=== PATIENT | female | born 1960 | race Caucasian/White ===

== ENCOUNTER 2019-02-16 20:27 | Inpatient (IN) | payer SELFPAY ==
[2019-02-16] MEDS ORDERED: SODIUM CHLORIDE 0.9% 500 ML INFUS.BAG IV ONE (21:19)
[2019-02-16] MEDS ORDERED: ACETAMINOPHEN 1000 MG/100 ML VIAL (NON FORMULARY) IVPB ONE (21:19)
[2019-02-16] MEDS ORDERED: ONDANSETRON 4 MG/2 ML VIAL IVPUSH ONE (21:19)
--- NOTE | 2019-02-16 21:30 | PDOC ---
History of Present Illness - General Chief Complaint: Pain, Acute Stated Complaint: ABDOMINAL PAIN Time Seen by Provider: 02/16/19 20:47 - History of Present Illness Initial Comments: Ms. Tristan is a 58 y/o female with PMH significant for CML (on daily Gleevec ) presenting with nausea, vomiting, and abdominal pain that started yesterday. Reports that after lunch she started vomiting NBNB. Reports 10x vomiting over the past day. Describes the abdominal pain as periumbilical and intermittent, coming in waves. Denies chest pain. Denies shortness of breath. Reports constipation. Denies headache/dizziness. Denies lower extremity swelling. Denies fever or chills. SurgHx: s/p gastric bypass surgery Past History - Past Medical History Allergies/Adverse Reactions: Allergies Allergy/AdvReac Type Severity Reaction Status Date / Time Penicillins Allergy Intermediate Verified 02/17/19 04:16 Home Medications: Ambulatory Orders Imatinib Mesylate [Gleevec] 400 mg PO BID 03/09/12 Cancer: Yes (LEUKEMIA) - Psycho Social/Smoking Cessation Hx Smoking Status: No Smoking History: Never smoked Have you smoked in the past 12 months: No Number of Cigarettes Smoked Daily: 0 Information on smoking cessation initiated: No Hx Alcohol Use: No Drug/Substance Use Hx: No Review of Systems - Review of Systems Comments:: GENERAL/CONSTITUTIONAL: No fever or chills. No weakness._ HEAD, EYES, EARS, NOSE AND THROAT: No change in vision. No change in hearing. No sore throat._ CARDIOVASCULAR: No chest pain or shortness of breath_ RESPIRATORY: Denies cough, hemoptysis_ GASTROINTESTINAL: Reports abdominal pain, nausea, vomiting, constipation. GENITOURINARY: No dysuria, frequency, or change in urination._ MUSCULOSKELETAL: No joint or muscle swelling or pain. No neck or back pain._ SKIN: No rash_ NEUROLOGIC: No headache, vertigo, loss of consciousness, or change in strength/ sensation._ ENDOCRINE: No increased thirst. No abnormal weight change_ HEMATOLOGIC/LYMPHATIC: No anemia, easy bleeding, or history of blood clots._ ALLERGIC/IMMUNOLOGIC: No hives or skin allergy._ *Physical Exam - Vital Signs Last Vital Signs Temp Pulse Resp BP Pulse Ox 97.5 F L 97 H 20 137/57 L 96 02/16/19 20:45 02/16/19 20:45 02/16/19 20:45 02/16/19 20:45 02/16/19 20:45 - Physical Exam GENERAL: Awake, alert, and oriented to person/place/time, in no acute distress_ HEAD: No signs of trauma, normocephalic, atraumatic _ EYES: PERRLA, EOMI, sclera anicteric, conjunctiva clear_ ENT: Hearing grossly normal, nares patent, oropharynx clear without exudates. No uvular deviation. Moist mucosa_ NECK: Normal ROM, supple, no lymphadenopathy, JVD, or masses_ LUNGS: No distress, speaks in full sentences, clear to auscultation bilaterally _ HEART: Regular rate and rhythm, normal S1 and S2, no murmurs appreciated, peripheral pulses normal and equal bilaterally._ ABDOMEN: Soft, obese, diffuse TTP worse in the periumbilical area. No guarding, no rebound. No masses_ EXTREMITIES: Normal inspection, Normal range of motion, no edema. No clubbing or cyanosis_ NEUROLOGICAL: Cranial nerves II through XII grossly intact. Normal speech, normal gait, no focal sensorimotor deficits _ SKIN: Warm, Dry, normal turgor, no rashes or lesions noted_ ED Treatment Course - LABORATORY CBC & Chemistry Diagram: 02/17/19 05:50 02/17/19 05:50 - RADIOLOGY Radiology Studies Ordered: Category Date Time Status ABDOMEN & PELVIS CT WITH CONTR [CT] Stat CT Scan 02/16/19 21:17 Ordered CHEST X-RAY PORTABLE* [RAD] Stat Radiology 02/16/19 21:18 Ordered Medical Decision Making - Medical Decision Making 02/16/19 21:20 58F hx of CML on Gleevec here with nausea, vomiting, abdominal pain that started yesterday. -cbc, cmp, lactic, lipase, coags -trop, ekg, cxr -ct abd/pelv 02/16/19 22:52 Labs reviewed. Lipase elevated. Potassium low. LFTs elevated -supplement K -will obtain RUQ US to r/o gallstone pancreatitis Laboratory Tests 02/16/19 02/16/19 02/16/19 21:31 21:31 21:31 WBC RBC Hgb Hct MCV MCH MCHC RDW Plt Count MPV Absolute Neuts (auto) Neutrophils % Neutrophils % (Manual) Band Neutrophils % Lymphocytes % Lymphocytes % (Manual) Monocytes % Monocytes % (Manual) Eosinophils % Eosinophils % (Manual) Basophils % Basophils % (Manual) Myelocytes % (Man) Promyelocytes % (Man) Blast Cells % (Manual) Nucleated RBC % Metamyelocytes Platelet Estimate PT with INR INR PTT (Actin FS) Sodium 140 Potassium 2.8 L* Chloride 109 H Carbon Dioxide 21 Anion Gap 10 BUN 13.4 Creatinine 1.0 Est GFR (CKD-EPI)AfAm 71.41 Est GFR (CKD-EPI)NonAf 61.62 Random Glucose 133 H Lactic Acid 3.9 H* Calcium 8.7 Total Bilirubin 5.7 H AST 135 H ALT 192 H Alkaline Phosphatase 223 H Creatine Kinase Troponin I Total Protein 6.6 Albumin 3.7 Lipase 50562 H Urine Color Urine Appearance Urine pH Ur Specific [place] Urine Protein Urine Glucose (UA) Urine Ketones Urine Blood Urine Nitrite Urine Bilirubin Urine Urobilinogen Ur Leukocyte Esterase Urine WBC (Auto) Urine RBC (Auto) Urine Casts (Auto) U Pathogenic Cast Auto U Epithel Cells (Auto) Urine Bacteria (Auto) Urine HCG, Qual Negative 02/16/19 02/16/19 02/16/19 21:31 21:31 21:31 WBC 2.1 L RBC 3.86 Hgb 11.2 Hct 34.2 MCV 88.7 MCH 29.2 MCHC 32.9 RDW 15.3 D Plt Count 87 L MPV 8.4 Absolute Neuts (auto) 2.0 Neutrophils % 94.7 H D Neutrophils % (Manual) 79.6 Band Neutrophils % 14.3 Lymphocytes % 3.5 L D Lymphocytes % (Manual) 3.1 L Monocytes % 1.4 L Monocytes % (Manual) 2 L Eosinophils % 0.4 D Eosinophils % (Manual) 0.0 Basophils % 0.0 Basophils % (Manual) 0.0 Myelocytes % (Man) 0 Promyelocytes % (Man) 0 Blast Cells % (Manual) 0 Nucleated RBC % 0 Metamyelocytes 0 Platelet Estimate Decreased PT with INR 15.80 H INR 1.34 H PTT (Actin FS) 30.7 Sodium Potassium Chloride Carbon Dioxide Anion Gap BUN Creatinine Est GFR (CKD-EPI)AfAm Est GFR (CKD-EPI)NonAf Random Glucose Lactic Acid Calcium Total Bilirubin AST ALT Alkaline Phosphatase Creatine Kinase 86 Troponin I < 0.02 Total Protein Albumin Lipase Urine Color Urine Appearance Urine pH Ur Specific [place] Urine Protein Urine Glucose (UA) Urine Ketones Urine Blood Urine Nitrite Urine Bilirubin Urine Urobilinogen Ur Leukocyte Esterase Urine WBC (Auto) Urine RBC (Auto) Urine Casts (Auto) U Pathogenic Cast Auto U Epithel Cells (Auto) Urine Bacteria (Auto) Urine HCG, Qual 02/16/19 21:31 WBC RBC Hgb Hct MCV MCH MCHC RDW Plt Count MPV Absolute Neuts (auto) Neutrophils % Neutrophils % (Manual) Band Neutrophils % Lymphocytes % Lymphocytes % (Manual) Monocytes % Monocytes % (Manual) Eosinophils % Eosinophils % (Manual) Basophils % Basophils % (Manual) Myelocytes % (Man) Promyelocytes % (Man) Blast Cells % (Manual) Nucleated RBC % Metamyelocytes Platelet Estimate PT with INR INR PTT (Actin FS) Sodium Potassium Chloride Carbon Dioxide Anion Gap BUN Creatinine Est GFR (CKD-EPI)AfAm Est GFR (CKD-EPI)NonAf Random Glucose Lactic Acid Calcium Total Bilirubin AST ALT Alkaline Phosphatase Creatine Kinase Troponin I Total Protein Albumin Lipase Urine Color Dk yellow Urine Appearance Cloudy Urine pH 5.0 Ur Specific [place] 1.021 Urine Protein 1+ H Urine Glucose (UA) Negative Urine Ketones 2+ H Urine Blood Negative Urine Nitrite Positive H Urine Bilirubin 2+ H Urine Urobilinogen 1.0 Ur Leukocyte Esterase Trace Urine WBC (Auto) 10 Urine RBC (Auto) 0-4 Urine Casts (Auto) 16 U Pathogenic Cast Auto Negative U Epithel Cells (Auto) 3.9 Urine Bacteria (Auto) 962.4 Urine HCG, Qual 02/17/19 00:05 Pt signed out to Dr. Kent. Discharge - Discharge Information Problems reviewed: Yes Clinical Impression/Diagnosis: Acute gallstone pancreatitis, Cholecystitis Condition: Fair - Admission Yes - Follow up/Referral - Patient Discharge Instructions - Post Discharge Activity
[2019-02-16] MEDS ORDERED: ACETAMINOPHEN INJECTION 100 ML IVPB ONE (21:44)
[2019-02-16] MEDS ORDERED: ONDANSETRON 4 MG/2 ML VIAL ONE (21:44)
[2019-02-16 21:49] LABS: EOS % 0.4 % (0-4.5); HEMATOCRIT 34.2 % (32.4-45.2); HEMOGLOBIN 11.2 GM/dL (10.7-15.3); LYMPH % 3.5 % (8-40); MCH 29.2 pg (25.7-33.7); MCHC 32.9 g/dl (32.0-36.0); MEAN CELL VOLUME 88.7 fl (80-96); MEAN PLT VOLUME 8.4 fl (7.5-11.1); MONO % 1.4 % (3.8-10.2); NEUT % 94.7 % (42.8-82.8); PLATELET COUNT 87 K/MM3 (134-434); RBC 3.86 M/mm3 (3.60-5.2); RDW 15.3 % (11.6-15.6); WHITE BLOOD COUNT 2.1 K/mm3 (4.0-10.0)
[2019-02-16 21:54] LABS: INR 1.34 (0.83-1.09); PROTHROMBIN TIME (PATIENT) 15.8 SEC (9.7-13.0)
[2019-02-16 21:57] LABS: ACTIVATED PTT 30.7 SECONDS (25.2-36.5)
[2019-02-16 22:09] LABS: EPI CELLS 3.9 /HPF (0-5/HPF); HYALINE CASTS 16 /lpf (0-8); URINE APPEARANCE CLOUDY; URINE BACTERIA 962.4 /hpf (NEGATIVE); URINE BILIRUBIN 2+ (NEGATIVE); URINE COLOR DK YELLOW; URINE GLUCOSE (UA) NEGATIVE (NEGATIVE); URINE KETONE 2+ (NEGATIVE); URINE LEUK ESTERASE TRACE (NEGATIVE); URINE NITRITE POSITIVE (NEGATIVE); URINE PROTEIN 1+ (NEGATIVE); URINE WBC 10 /hpf (0-5)
[2019-02-16 22:22] LABS: PLATELET ESTIMATE DECREASED
[2019-02-16 22:23] LABS: ALBUMIN 3.7 g/dl (3.4-5.0); BILIRUBIN,TOTAL 5.7 mg/dL (0.2-1); BLOOD UREA NITROGEN 13.4 mg/dL (7-18); CALCIUM 8.7 mg/dL (8.5-10.1); TOT PROT 6.6 g/dl (6.4-8.2)
[2019-02-16 22:24] LABS: POTASSIUM 2.8 mmol/L (3.5-5.1)
[2019-02-16] MEDS ORDERED: POTASSIUM CHLORIDE 20 MEQ PREMIX IVPB 100 ML IVPB ONE (22:26)
[2019-02-16] MEDS ORDERED: LACTATED RINGERS SOLUTION 1,000 ML/1,000 ML INFUS.BAG IV SCH (22:30)
[2019-02-16 22:44] LABS: URINE RBC 0-4 /hpf (0-4)
--- NOTE | 2019-02-16 22:49 | PDOC ---
Documentation entered by Jamison Mancilla SCRIBE, acting as scribe for Danisha Davis MD. Danisha Davis MD: This documentation has been prepared by the Laurent nunez Xhesika, SCRIBE, under my direction and personally reviewed by me in its entirety. I confirm that the documentation accurately reflects all work, treatment, procedures, and medical decision making performed by me. Attending Attestation - Resident Resident Name: Abhijeet Quinones - ED Attending Attestation I have performed the following: I have examined & evaluated the patient, The case was reviewed & discussed with the resident, I agree w/resident's findings & plan, Exceptions are as noted - HPI HPI: 02/16/19 22:06 The patient is a 58 year old female with a significant PMH of CML (on daily Gleevec) who presents to the emergency department for abdominal pain, nausea and NBNB emesis. Patient reports that she was well during thanksgiving Yesterday, she had breakfast and subsequent to this noted nausea and vomiting She improved by the evening and was able to tolerate home made soup This morning she again began to have nausea and vomiting She has had multiple episodes of nausea and vomiting No diarrhea, today small hard stools She is not passing gas Pt has had waves of abdominal pain, through out the abdomen, rated 10/10, no radiation, no exacerbating or alleviating factors No fevers, chills No dysuria, frequency, urgency and hematuria. Allergies: penicillins Past surgical history: s/p gastric bypass PCP: Dr. Hernandez 02/16/19 22:31 - Physicial Exam PE: 02/16/19 22:07 GENERAL: The patient is in no acute distress. HEAD: Normal EYES: PERRLA, EOMI, sclera anicteric, conjunctiva clear. ENT: Ears normal, nares patent, oropharynx clear without exudates. Dry mucous membranes. LUNGS: Breath sounds equal, clear to auscultation bilaterally. No wheezes, and no crackles. HEART:Regular rate and rhythm, normal S1 and S2 without murmur, rub or gallop. ABDOMEN: Soft, protruberant, tender epigastrium, tender lower abdomen, no involuntary guarding or rebound EXTREMITIES: Normal range of motion, no edema. NEUROLOGICAL: Cranial nerves II through XII grossly intact. Normal speech. No focal neurological deficits. SKIN: Warm, Dry, normal turgor, no rashes or lesions noted. 02/16/19 22:46 - Critical Care Time Total Critical Care Time: 60 Critical Care Statement: The care of this patient involved high complexity decision making to prevent further life threatening deterioration of the patient 's condition and/or to evaluate & treat vital organ system(s) failure or risk of failure. - Medical Decision Making 02/16/19 22:47 58-year-old female presenting with a complaint of abdominal pain, intractable vomiting DD: Appendicitis, colitis, enteritis, gastroenteritis, obstruction, cholecystitis, gastritis, gastric ulcer, diverticulitis We will do: Lab CT IV hydration Analgesia, antiemetic 02/16/19 22:48 Laboratory Tests 02/16/19 02/16/19 02/16/19 21:31 21:31 21:31 WBC Hgb Hct Plt Count Neutrophils % INR PTT (Actin FS) Sodium 140 Potassium 2.8 L* Chloride 109 H BUN 13.4 Creatinine 1.0 Random Glucose 133 H Lactic Acid 3.9 H* Total Bilirubin 5.7 H AST 135 H ALT 192 H Alkaline Phosphatase 223 H Creatine Kinase Troponin I Albumin 3.7 Lipase 49788 H Urine Ketones Urine Blood Urine Nitrite Urine Bilirubin Ur Leukocyte Esterase Urine WBC (Auto) Urine HCG, Qual Negative 02/16/19 02/16/19 02/16/19 21:31 21:31 21:31 WBC 2.1 L Hgb 11.2 Hct 34.2 Plt Count 87 L Neutrophils % 94.7 H D INR 1.34 H PTT (Actin FS) 30.7 Sodium Potassium Chloride BUN Creatinine Random Glucose Lactic Acid Total Bilirubin AST ALT Alkaline Phosphatase Creatine Kinase 86 Troponin I < 0.02 Albumin Lipase Urine Ketones Urine Blood Urine Nitrite Urine Bilirubin Ur Leukocyte Esterase Urine WBC (Auto) Urine HCG, Qual 02/16/19 21:31 WBC Hgb Hct Plt Count Neutrophils % INR PTT (Actin FS) Sodium Potassium Chloride BUN Creatinine Random Glucose Lactic Acid Total Bilirubin AST ALT Alkaline Phosphatase Creatine Kinase Troponin I Albumin Lipase Urine Ketones 2+ H Urine Blood Negative Urine Nitrite Positive H Urine Bilirubin 2+ H Ur Leukocyte Esterase Trace Urine WBC (Auto) 10 Urine HCG, Qual Elevated bilirubin LFT abnormality Pancreatitis We will do right upper quadrant ultrasound We will do CT of the abdomen and pelvis 02/17/19 01:54 EKG: ST rate of 106 bpm, axis nml, intervals nml, no st elevation or depression , t waves upright Signed out pending CT and US Clinical impression: Likely gallstone pancreatitis, initial presentation Discharge - Discharge Information Problems reviewed: Yes Clinical Impression/Diagnosis: Acute gallstone pancreatitis, Cholecystitis Condition: Fair - Admission Yes - Follow up/Referral - Patient Discharge Instructions - Post Discharge Activity
[2019-02-16] MEDS ORDERED: KCL 10 MEQ IVPB 20 MEQ/200 ML INFUS.BAG IVPB ONE (23:08)
[2019-02-17] MEDS ORDERED: KCL 10 MEQ IVPB 10 MEQ/100 ML INFUS.BAG IVPB SCH (02:15)
[2019-02-17] MEDS ORDERED: KCL 10 MEQ IVPB 10 MEQ/100 ML INFUS.BAG IVPB ONE (02:32)
--- NOTE | 2019-02-17 02:51 | HP ---
Admitting History and Physical - Primary Care Physician PCP: Dr. Hernandez - Admission Chief Complaint: Acute abdominal pain, [place] History of Present Illness: 58 year old female with PMH significant for CML (on daily Gleevec) arrived to ED for nausea, vomiting, and abdominal pain which started yesterday. According to patient pain started after lunch which lead to vomiting NBNB. Patient reports 10x vomiting over the past day. Patient described abdominal pain as angelica -umbilical and intermittent, no radiation, no exacerbating or alleviating factors. Patient denies chest pain, SOB, headache/dizziness, fever or chills however does report constipation. History Source: Patient Limitations to Obtaining History: No Limitations - Past Medical History Heme/Onc: Yes: Cancer (CML) - Past Surgical History Past Surgical History: Yes: Bariatric Surgery (s/p gastric bypass), Tubal Ligation - Smoking History Smoking history: Never smoked Have you smoked in the past 12 months: No Aproximately how many cigarettes per day: 0 - Alcohol/Substance Use Hx Alcohol Use: No History of Substance Use: reports: None - Social History Usual Living Arrangement: Yes: With Spouse ADL: Independent History of Recent Travel: Yes (Amy, moves back and forth ) Home Medications - Allergies Allergies/Adverse Reactions: Allergies Allergy/AdvReac Type Severity Reaction Status Date / Time Penicillins Allergy Intermediate Verified 02/17/19 04:16 - Home Medications Home Medications: Ambulatory Orders Imatinib Mesylate [Gleevec] 400 mg PO BID 03/09/12 Multivit-Min/FA/Lycopene/Lut [Centrum Silver Tablet] 1 each PO DAILY 03/09/12 levoFLOXacin [Levaquin] 500 mg PO DAILY #7 tablet 03/11/12 Family Medical History Family Hx Cancer: Mother (breast ca) Family Hx Nuerologic Problems: Father (strokes) Review of Systems - Review of Systems Constitutional: reports: No Symptoms Eyes: reports: No Symptoms HENT: reports: No Symptoms Neck: reports: No Symptoms Cardiovascular: reports: No Symptoms Respiratory: reports: No Symptoms Gastrointestinal: reports: Abdominal Pain, Constipation, Nausea, Vomiting Genitourinary: reports: No Symptoms Breasts: reports: No Symptoms Reported Musculoskeletal: reports: No Symptoms Integumentary: reports: No Symptoms Neurological: reports: No Symptoms Endocrine: reports: No Symptoms Hematology/Lymphatic: reports: No Symptoms Psychiatric: reports: No Symptoms Physical Examination Vital Signs: Vital Signs Temperature 97.5 F L 02/16/19 20:45 Pulse Rate 97 H 02/16/19 20:45 Respiratory Rate 20 02/16/19 20:45 Blood Pressure 137/57 L 02/16/19 20:45 O2 Sat by Pulse Oximetry (%) 96 02/16/19 20:45 Constitutional: Yes: No Distress, Calm Eyes: Yes: Conjunctiva Clear, EOM Intact HENT: Yes: Atraumatic, Normocephalic Neck: Yes: Supple, Trachea Midline Cardiovascular: Yes: Regular Rate and Rhythm Respiratory: Yes: Regular, CTA Bilaterally Gastrointestinal: Yes: Soft, Abdomen, Obese, Tenderness, Tenderness, Epigastrium Musculoskeletal: Yes: WNL Extremities: Yes: WNL Edema: No Peripheral Pulses WNL: Yes Neurological: Yes: Oriented Labs: CBC, BMP 02/16/19 21:31 02/16/19 21:31 Imaging - Results Cat Scan: Report Reviewed ( CT Abd: small gallstones are noted, acute cholecystitis) Ultrasound: Report Reviewed (Abd US: moderate gallbladder distention with choleithiasis, and abnormal gallbladder wall thickening with mild pericholecystic fluid consistent with acute cholecystitis.) Problem List - Problems (1) Sepsis associated hypotension Code(s): A41.9 - SEPSIS, UNSPECIFIED ORGANISM; I95.9 - HYPOTENSION, UNSPECIFIED (2) Acute gallstone pancreatitis Code(s): K85.10 - BILIARY ACUTE PANCREATITIS WITHOUT NECROSIS OR INFECTION (3) Cholecystitis Code(s): K81.9 - CHOLECYSTITIS, UNSPECIFIED (4) Elevated lactic acid level Code(s): R79.89 - OTHER SPECIFIED ABNORMAL FINDINGS OF BLOOD CHEMISTRY (5) CML (chronic myelocytic leukemia) Code(s): C92.10 - CHRONIC MYELOID LEUK, BCR/ABL-POSITIVE, NOT ACHIEVE REMIS (6) Hypokalemia Code(s): E87.6 - HYPOKALEMIA Assessment/Plan 58 year old female with PMH significant for CML (on daily Gleevec) arrived to ED for nausea, vomiting, and abdominal pain which started yesterday. #Sepsis #Acute gallstone pancreatitis #Cholecystitis # Elevated lactic acidosis Abd US: moderate gallbladder distention with choleithiasis, and abnormal gallbladder wall thickening with mild pericholecystic fluid consistent with acute cholecystitis. CT Abd: small gallstones are noted, acute cholecystitis Lipase: 87328 Alkaline phos: 223; ALT: 192; AST: 135; Total bili: 5.7 UA: 2+ bili, +nitrate, +1 protein lactic acid: 3.9, follow up #2 at 6 am S/P in ED IV hydration,Analgesia, antiemetic, given x1 flagyl and Levaquin IV - monitor LFTs, bili trend - ED discussed with Sx, recs to continue with IVF and antibiotics, possible sx Monday - continue with IVF - continue with Analgesia PRN - continue with antiemetic PRN - change IV antibiotics to broad consider Vancomycin and flagyl - repeat cbc, CMP in AM - follow up ID consult - follow up surgery consult - follow up GI consult #Leukopenia, Hypotension - BP dropped from 137/57 --> 96/50 post 2 L IVF - consider bolus fluids , if still hypotensive consider pressors # Hypokalemia K(2.8) -replaced with KCL in ED - monitor K trend # Chronic Myeloid leukemia - Imatinib Mesylate 400 mg PO BID VTE: Heparin SQ, TEDs FEN: continue with IVF, replace/correct lytes, NPO Disposition: Inpatient ICU Visit type - Emergency Visit Emergency Visit: Yes ED Registration Date: 02/17/19 Care time: The patient presented to the Emergency Department on the above date and was hospitalized for further evaluation of their emergent condition. - New Patient This patient is new to me today: Yes Date on this admission: 02/17/19 - Critical Care Critical Care patient: No
[2019-02-17] MEDS ORDERED: SODIUM CHLORIDE 1,000 ML IV STA (03:21)
[2019-02-17] MEDS ORDERED: MORPHINE SULFATE 2 MG/ML VIAL IVPUSH PRN (03:25)
[2019-02-17] MEDS ORDERED: ACETAMINOPHEN 325 MG TABLET (FP) PO PRN (03:25)
--- NOTE | 2019-02-17 04:08 | CONSULT ---
Consult Consult Specialty:: CCM Referred by:: ED attending Paty Reason for Consultation:: gallstone pancreatitis, cholecystitis - History of Present Illness Chief Complaint: abd pain, N/V History of Present Illness: 58 y/o woman with CML on Gleevac, morbidi obesity s/p gastric bypass presenting with non bloody non bilious nausea, vomiting and abdominal pain for 36 hrs which began after Thanksgiving dinner. She denies loss of consciousness, chest pain, shortness of breath, hematemesis, new medication, trauma. In ED she is afebrile mildly tachycardic, normotensive. Labs notable for wbc 2, Lactate 3, Tbili 5, Lipase 12K, elevated AST and ALT. She underwent CTAP and abd US both of which showed thickened gallbladder and cholelithiasis with associated pericholeic fluid. She was started on broad spectrum abd. GI and surgery were called by ED. Pt received ~2.5L crystalloid . SBP fell to 90s. Pt being admitted to ICU for further management pending determination for ERCP vs cholecystectomy. - History Source History Provided By: Patient, Medical Record Limitations to Obtaining History: No Limitations - Past Medical History Heme/Onc: Yes: Other (CML) - Past Surgical History Past Surgical History: Yes: Bariatric Surgery (s/p gastric bypass), Tubal Ligation - Alcohol/Substance Use Hx Alcohol Use: No History of Substance Use: reports: None - Smoking History Smoking history: Never smoked Have you smoked in the past 12 months: No Aproximately how many cigarettes per day: 0 - Social History Usual Living Arrangement: With Spouse ADL: Independent History of Recent Travel: Yes (Amy, moves back and forth ) Home Medications - Allergies Allergies/Adverse Reactions: Allergies Allergy/AdvReac Type Severity Reaction Status Date / Time Penicillins Allergy Intermediate Verified 02/17/19 04:16 - Home Medications Home Medications: Ambulatory Orders Imatinib Mesylate [Gleevec] 400 mg PO BID 03/09/12 Family Medical History Family History: Unremarkable Review of Systems - Review of Systems Constitutional: reports: No Symptoms, Night Sweats, Unintentional Wgt. Loss Eyes: reports: No Symptoms HENT: reports: No Symptoms Neck: reports: No Symptoms Cardiovascular: reports: No Symptoms Respiratory: reports: No Symptoms Gastrointestinal: reports: Abdominal Pain, Nausea, Vomiting. denies: Diarrhea, Melena, Vomiting Blood Genitourinary: reports: No Symptoms Breasts: reports: No Symptoms Reported Musculoskeletal: reports: No Symptoms Integumentary: reports: No Symptoms Neurological: reports: No Symptoms Endocrine: reports: No Symptoms Hematology/Lymphatic: reports: No Symptoms Psychiatric: reports: No Symptoms Physical Exam Vital Signs: Vital Signs Temperature 97.5 F L 02/16/19 20:45 Pulse Rate 104 H 02/17/19 03:01 Respiratory Rate 20 02/17/19 03:01 Blood Pressure 96/50 L 02/17/19 03:01 O2 Sat by Pulse Oximetry (%) 95 02/17/19 03:01 Constitutional: Yes: Well Nourished, Mild Distress, Obese Eyes: Yes: Conjunctiva Clear, EOM Intact, PERRL HENT: Yes: Atraumatic, Normocephalic. No: Rhinnorhea, Thrush Neck: Yes: Trachea Midline. No: Lymphadenopathy Cardiovascular: Yes: Regular Rate and Rhythm, S1, S2. No: Murmur Respiratory: Yes: CTA Bilaterally. No: Accessory Muscle Use Gastrointestinal: Yes: Soft, Abdomen, Obese, Tenderness (L>R UQ) ...Rectal Exam: Yes: Deferred Renal/: Yes: WNL Breast(s): Yes: WNL Musculoskeletal: Yes: WNL Extremities: Yes: WNL Edema: Yes Edema: LLE: Trace, RLE: Trace Peripheral Pulses WNL: Yes Integumentary: Yes: WNL Neurological: Yes: WNL, Alert, Cran Nerves II-XII Intact ...Motor Strength: WNL Psychiatric: Yes: WNL Labs: CBC, BMP 02/16/19 21:31 02/16/19 21:31 Hepatic Panel Total Bilirubin 5.7 mg/dL (0.2-1) H 02/16/19 21:31 AST 135 U/L (15-37) H 02/16/19 21:31 ALT 192 U/L (13-61) H 02/16/19 21:31 Alkaline Phosphatase 223 U/L (45-117) H 02/16/19 21:31 Albumin 3.7 g/dl (3.4-5.0) 02/16/19 21:31 Imaging - Results Cat Scan: Report Reviewed Ultrasound: Report Reviewed (CBD 5mm, thickened GB wall, + sonographic [place]) Problem List - Problems (1) Acute gallstone pancreatitis Code(s): K85.10 - BILIARY ACUTE PANCREATITIS WITHOUT NECROSIS OR INFECTION (2) CML (chronic myelocytic leukemia) Code(s): C92.10 - CHRONIC MYELOID LEUK, BCR/ABL-POSITIVE, NOT ACHIEVE REMIS (3) Cholecystitis Code(s): K81.9 - CHOLECYSTITIS, UNSPECIFIED (4) Elevated lactic acid level Code(s): R79.89 - OTHER SPECIFIED ABNORMAL FINDINGS OF BLOOD CHEMISTRY (5) Hypokalemia Code(s): E87.6 - HYPOKALEMIA (6) Sepsis associated hypotension Code(s): A41.9 - SEPSIS, UNSPECIFIED ORGANISM; I95.9 - HYPOTENSION, UNSPECIFIED Assessment/Plan CCM Seen and examined in ED A/ 58 y/o female with CML, morbid obesity p/w N/V abd pain x 2 days found to have gallstone pancreatitis P/ #cholelithiasis , pancreatitis -GI (Lantin) and surgery have been called -F/u on timing of ERCP ? -IVF -NPO -pain control -check yoli at 48hrs #leukopenia, lactic acidosis, hypotension SIRS from pancreatitis vs biliary sepsis -IVF -send blood cxl -broad spectrum abx (Pen allergy/hives) -ID to consult. Received LVQ, Aztreonam, Vanco, Flagyl #CML: thrombocytopenia, leukopenia, on gleevac -may need plts prior to procedure if drops further SCD for DVT prophy, no acute indication for Stress ulcer proph Jose ACNP 4442 35 min CCT spent evaluating pt and formulating plan. Critical Care Time/MDM Note Total Critical Care Time: 35 Critical Care Statement: The care of this patient involved high complexity decision making to prevent further life threatening deterioration of the patient 's condition and/or to evaluate & treat vital organ system(s) failure or risk of failure.
[2019-02-17] MEDS: HEPARIN NA (PORCINE) 5,000 UNITS/ML 1ML VIAL SQ SCH ×3 (06:07→21:34)
[2019-02-17 06:33] LABS: HEMATOCRIT 30.2 % (32.4-45.2); MCH 29.4 pg (25.7-33.7); MCHC 33.1 g/dl (32.0-36.0); MEAN CELL VOLUME 88.9 fl (80-96); MEAN PLT VOLUME 9.2 fl (7.5-11.1); PLATELET COUNT 83 K/MM3 (134-434); RDW 15.6 % (11.6-15.6); WHITE BLOOD COUNT 8.3 K/mm3 (4.0-10.0)
[2019-02-17 07:34] VITALS: BMI 38.5
[2019-02-17 07:48] LABS: BILIRUBIN,TOTAL 5.2 mg/dL (0.2-1); BLOOD UREA NITROGEN 13.4 mg/dL (7-18); CREATININE 0.9 mg/dL (0.55-1.3); MAGNESIUM 1.5 mg/dL (1.8-2.4); POTASSIUM 3.3 mmol/L (3.5-5.1); TOT PROT 5.7 g/dl (6.4-8.2)
--- NOTE | 2019-02-17 09:28 | CON.ID ---
Consult Consult Specialty:: infectious disease Reason for Consultation:: pen allergy, antiboitic reccd for cholycystitis - History of Present Illness Chief Complaint: vomiting ruq pain History of Present Illness: 58 yo female with history of CML for 10 years on Gleevac daily, gastric bypass 20 years retired to [place] in August 2018, here visiting family developed vomiting on Monday am yesterday am had multiple episodes of vomiting and ruq pain +chills came to ED no recent antiiboitc use-last year got a zpak gets hives to Penicillin in ED noted to have leukopenia and thrombocytopenia with abnormal lfts ct scan prelim with acute cholycystitis with stones and pericholycstic fluid sonogram pending she got levaquin and flagyl this am no further vomiting or abdominal pain was hypotensive after IV fluid in the ED with lactic acid of 3.5 and was admitted to ICU - History Source History Provided By: Patient Limitations to Obtaining History: No Limitations - Past Medical History Heme/Onc: Yes: Other (CML) - Past Surgical History Past Surgical History: Yes: Bariatric Surgery (s/p gastric bypass), Tubal Ligation - Alcohol/Substance Use Hx Alcohol Use: No History of Substance Use: reports: None - Smoking History Smoking history: Never smoked Have you smoked in the past 12 months: No Aproximately how many cigarettes per day: 0 - Social History Usual Living Arrangement: With Spouse ADL: Independent Occupation: retired surgical manager Place of : [facility] Came to .S. (year): lives in [facility] History of Recent Travel: Yes ([place], moves back and forth ) Home Medications - Allergies Allergies/Adverse Reactions: Allergies Allergy/AdvReac Type Severity Reaction Status Date / Time Penicillins Allergy Intermediate Verified 02/17/19 04:16 - Home Medications Home Medications: Ambulatory Orders Imatinib Mesylate [Gleevec] 400 mg PO BID 03/09/12 Family Medical History Family History: Denies Review of Systems - Review of Systems Constitutional: reports: Chills. denies: Fever Eyes: reports: No Symptoms HENT: reports: No Symptoms Neck: reports: No Symptoms Cardiovascular: reports: No Symptoms. denies: Chest Pain Respiratory: reports: No Symptoms. denies: Cough, SOB Gastrointestinal: reports: Abdominal Pain, Vomiting. denies: Constipation, Diarrhea Genitourinary: reports: No Symptoms Physical Exam Vital Signs: Vital Signs Temperature 98.3 F 02/17/19 09:00 Pulse Rate 92 H 02/17/19 09:00 Respiratory Rate 20 02/17/19 09:00 Blood Pressure 123/73 02/17/19 09:00 O2 Sat by Pulse Oximetry (%) 99 02/17/19 09:00 Constitutional: Yes: Well Nourished, No Distress Eyes: Yes: Conjunctiva Clear, EOM Intact HENT: Yes: Atraumatic, Normocephalic Neck: Yes: Supple, Trachea Midline Cardiovascular: Yes: Regular Rate and Rhythm Respiratory: Yes: Regular, CTA Bilaterally Gastrointestinal: Yes: Normal Bowel Sounds, Soft, Other (mild RUQ disomfort to palpation) Edema: No Integumentary: No: Rash Neurological: Yes: Alert, Oriented Labs: CBC, BMP 02/17/19 05:50 02/17/19 05:50 cultures pending Laboratory Tests 02/16/19 02/17/19 21:31 05:50 Total Bilirubin 5.2 H AST 87 H ALT 147 H Alkaline Phosphatase 124 H Lipase 19148 H Imaging - Results Chest X-ray: Report Reviewed, Image Reviewed Cat Scan: Pending Ultrasound: Pending Problem List - Problems (1) Biliary sepsis Code(s): K83.09 - OTHER CHOLANGITIS (2) Acute gallstone pancreatitis Code(s): K85.10 - BILIARY ACUTE PANCREATITIS WITHOUT NECROSIS OR INFECTION (3) Choledocholithiasis Code(s): K80.50 - CALCULUS OF BILE DUCT W/O CHOLANGITIS OR CHOLECYST W/O OBST (4) Cholecystitis Code(s): K81.9 - CHOLECYSTITIS, UNSPECIFIED (5) CML (chronic myelocytic leukemia) Code(s): C92.10 - CHRONIC MYELOID LEUK, BCR/ABL-POSITIVE, NOT ACHIEVE REMIS (6) Penicillin allergy Code(s): Z88.0 - ALLERGY STATUS TO PENICILLIN Assessment/Plan awaiting GI and Surgical input continue levaquin/flagyl add azactam for increased GNR coverage pending cultures ?passed a stone, clinically improved
[2019-02-17] MEDS: KCL 10 MEQ IVPB 10 MEQ/100 ML INFUS.BAG IVPB SCH ×2 (10:29→10:53)
[2019-02-17] MEDS ORDERED: AZTREONAM 1 GM VIAL (RESTRICTED TO ID) ONE ×3 (10:38→20:41)
[2019-02-17] MEDS ORDERED: DEXTROSE 5%-WATER - 50 ML IVPB ONE ×3 (10:39→20:41)
[2019-02-17] MEDS: AZTREONAM 1 GM in DEXTROSE 5%-WATER - 50 ML IVPB SCH ×2 (10:52→18:20)
--- NOTE | 2019-02-17 11:18 | CONSULT ---
- Consultation REQUESTING PROVIDER: Donte WHATLEY CONSULT REQUEST: We have been asked to surgically evaluate this patient for abdominal pain. PCP:Darius Hernandez HISTORY OF PRESENT ILLNESS: GAURI who is a 58 y/o female who developed n /v/abdominal pain after eating on ; pain is sharp in nature and epigastric and RUQ in location; she never had this before and is unaware that she had gallstones which were found on w/u in the ED; she feels better since admission. She has had a RYGB 20 years ago. She deies dark urine/light stools or any other GI//[employer] c/o's; she was admitted to the ICU. PMHx: CML PSHx: RYGB Home Medications Medication Instructions Recorded Imatinib Mesylate [Gleevec] 400 mg PO BID 03/09/12 Allergies Allergy/AdvReac Type Severity Reaction Status Date / Time Penicillins Allergy Intermediate Verified 02/17/19 04:16 REVIEW OF SYSTEMS: CONSTITUTIONAL: Absent: fever, chills, diaphoresis, generalized weakness, malaise, loss of appetite, weight change CARDIOVASCULAR: Absent: chest pain, syncope, palpitations, irregular heart rate, lightheadedness , peripheral edema RESPIRATORY: Absent: cough, shortness of breath, dyspnea with exertion, wheezing, stridor, hemoptysis GASTROINTESTINAL: Present: abdominal pain, abdominal distension, nausea, vomiting, Absent : diarrhea, constipation, melena, hematochezia GENITOURINARY: Absent: dysuria, frequency, urgency, hesitancy, hematuria, flank pain, genital pain MUSCULOSKELETAL: Absent: myalgia, arthralgia, joint swelling, back pain, neck pain SKIN: Absent: rash, itching, pallor HEMATOLOGIC/IMMUNOLOGIC: Absent: easy bleeding, easy bruising, lymphadenopathy NEUROLOGIC: Absent: headache, focal weakness, paresthesias, dizziness, unsteady gait, seizure, mental status changes, bladder or bowel incontinence PSYCHIATRIC: Absent: anxiety, depression, suicidal or homicidal ideation, hallucinations. PHYSICAL EXAM: GENERAL: Awake, alert, and fully oriented, in no acute distress. HEAD: Normal with no signs of trauma. EYES: sclera anicteric, conjunctiva clear. NECK: Normal ROM, supple without lymphadenopathy, JVD, or masses. ABDOMEN: Soft, nontender, not distended, normoactive bowel sounds, no guarding, no rebound, no masses. No organomegaly. No hernias; healed port sites from RYGB. MUSCULOSKELETAL: Normal ROM at all joints. No bony deformities or tenderness. No CVA tenderness. UPPER EXTREMITIES: 2+ pulses, warm, well-perfused. No cyanosis. Cap refill <2 seconds. No peripheral edema. LOWER EXTREMITIES: 2+ pulses, warm, well-perfused. No calf tenderness. No peripheral edema. NEUROLOGICAL: Normal speech, gait not observed. PSYCH: Cooperative. Good eye contact. Appropriate mood and affect. SKIN: Warm, dry, normal turgor, no rashes or lesions noted. Vital Signs Temperature 98.3 F 02/17/19 09:00 Pulse Rate 92 H 02/17/19 09:00 Respiratory Rate 20 02/17/19 09:00 Blood Pressure 123/73 02/17/19 09:00 O2 Sat by Pulse Oximetry (%) 99 02/17/19 09:00 Lab Results WBC 8.3 K/mm3 (4.0-10.0) 02/17/19 05:50 RBC 3.40 M/mm3 (3.60-5.2) L 02/17/19 05:50 Hgb 10.0 GM/dL (10.7-15.3) L 02/17/19 05:50 Hct 30.2 % (32.4-45.2) L 02/17/19 05:50 MCV 88.9 fl (80-96) 02/17/19 05:50 MCHC 33.1 g/dl (32.0-36.0) 02/17/19 05:50 RDW 15.6 % (11.6-15.6) 02/17/19 05:50 Plt Count 83 K/MM3 (134-434) L 02/17/19 05:50 Sodium 141 mmol/L (136-145) 02/17/19 05:50 Potassium 3.3 mmol/L (3.5-5.1) L 02/17/19 05:50 Chloride 110 mmol/L (98-107) H 02/17/19 05:50 Carbon Dioxide 20 mmol/L (21-32) L 02/17/19 05:50 Anion Gap 11 MMOL/L (8-16) 02/17/19 05:50 BUN 13.4 mg/dL (7-18) 02/17/19 05:50 Creatinine 0.9 mg/dL (0.55-1.3) 02/17/19 05:50 Random Glucose 138 mg/dL (74-106) H 02/17/19 05:50 Calcium 8.0 mg/dL (8.5-10.1) L 02/17/19 05:50 INR 1.34 (0.83-1.09) H 02/16/19 21:31 US/CT/labs reviewed IMP:cholelithiais and gallstone pancreatitis PLAN: Continue present tx.; NPO/IVF/trend amylase/lipase; as CBD is normal in size and there is no biliary tract dilatation she most likely passed a stone; she willeventually need a laparoscopic possible open cholecystectomy; MRCP may be helpful; GI Consultation should be sought for evaluation for possible ERCP and related procedures h/e ERCP and related procedures in patients who have had a previous RYGB is usually technically challenging; will f/u. Sg Bender MD FACS
--- NOTE | 2019-02-17 11:30 | PN ---
Progress Note, Physician History of Present Illness: 58 year old female with PMH significant for CML (on daily Gleevec) arrived to ED for nausea, vomiting, and abdominal pain which started yesterday. According to patient pain started after lunch which lead to vomiting NBNB. Patient reports 10x vomiting over the past day. Patient described abdominal pain as angelica -umbilical and intermittent, no radiation, no exacerbating or alleviating factors. Patient denies chest pain, SOB, headache/dizziness, fever or chills however does report constipation. - Current Medication List Current Medications: Active Medications Acetaminophen (Tylenol -) 650 mg PO Q6H PRN PRN Reason: PAIN LEVEL 1-5 Chlorhexidine Gluconate (Hibiclens For Decolonization -) 1 applic TP HS SERGIO Heparin Sodium (Porcine) (Heparin -) 5,000 unit SQ TID SERGIO Last Admin: 02/17/19 06:07 Dose: 5,000 unit Lactated Ringer's (Lactated Ringers Solution) 1,000 ml in 1,000 mls @ 125 mls/ hr IV ASDIR SERGIO Last Admin: 02/17/19 01:32 Dose: 125 mls/hr Metronidazole (Flagyl 500mg Premixed Ivpb -) 500 mg in 100 mls @ 100 mls/hr IVPB Q8H-IV SERGIO Last Admin: 02/17/19 10:53 Dose: 100 mls/hr Levofloxacin (Levaquin 500 Mg Premixed Ivpb -) 500 mg in 100 mls @ 100 mls/hr IVPB DAILY SERGIO; Protocol Aztreonam 1 gm/ Dextrose 50 mls @ 100 mls/hr IVPB Q8H-IV SERGIO; Protocol Last Admin: 02/17/19 10:52 Dose: 100 mls/hr Morphine Sulfate (Morphine Sulfate) 1 mg IVPUSH Q8H PRN PRN Reason: PAIN LEVEL 6-10 Mupirocin (Bactroban Ointment (For Decolonization) -) 1 applic NS BID [facility] Stop: 02/22/19 09:59 Ondansetron HCl (Zofran Injection) 4 mg IVPUSH Q6H PRN PRN Reason: NAUSEA Stop: 02/21/19 23:59 - Objective Vital Signs: Vital Signs Temperature 98.3 F 02/17/19 09:00 Pulse Rate 92 H 02/17/19 09:00 Respiratory Rate 20 02/17/19 09:00 Blood Pressure 123/73 02/17/19 09:00 O2 Sat by Pulse Oximetry (%) 99 02/17/19 09:00 Cardiovascular: Yes: Regular Rate and Rhythm Respiratory: Yes: Regular, CTA Bilaterally Gastrointestinal: Yes: Normal Bowel Sounds, Soft, Tenderness, Epigastrium ( minimal) Labs: CBC, BMP 02/17/19 05:50 02/17/19 05:50 INR, PTT INR 1.34 (0.83-1.09) H 02/16/19 21:31 Problem List - Problems (1) Acute gallstone pancreatitis Assessment/Plan: Abd US: moderate gallbladder distention with choleithiasis, and abnormal gallbladder wall thickening with mild pericholecystic fluid consistent with acute cholecystitis. CT Abd: small gallstones are noted, acute cholecystitis Lipase: 23669 Laboratory Tests 02/16/19 02/16/19 02/16/19 21:31 21:31 21:31 WBC 2.1 L Hgb 11.2 Plt Count 87 L Potassium 2.8 L* Creatinine 1.0 Lactic Acid 3.9 H* Total Bilirubin 5.7 H AST 135 H ALT 192 H Alkaline Phosphatase 223 H Troponin I Lipase 00038 H 02/16/19 02/17/19 02/17/19 21:31 05:50 05:50 WBC 8.3 Hgb 10.0 L Plt Count 83 L Potassium 3.3 L Creatinine 0.9 Lactic Acid Total Bilirubin 5.2 H AST 87 H ALT 147 H Alkaline Phosphatase 124 H Troponin I < 0.02 Lipase - monitor LFTs, bili trend - IVF and antibiotics, - continue with Analgesia PRN - continue with antiemetic PRN - repeat cbc, CMP in AM - ID consult appreciated - follow up surgery consult - follow up GI consult Code(s): K85.10 - BILIARY ACUTE PANCREATITIS WITHOUT NECROSIS OR INFECTION (2) CML (chronic myelocytic leukemia) Code(s): C92.10 - CHRONIC MYELOID LEUK, BCR/ABL-POSITIVE, NOT ACHIEVE REMIS
[2019-02-17] MEDS: MUPIROCIN 2% TOPICAL OINTMENT FOR DECOLONIZATION NS SCH ×2 (11:39→21:33)
--- NOTE | 2019-02-17 15:38 | CON.GI ---
Consult Consult Specialty:: GI coverage for Dr Dubon - History of Present Illness History of Present Illness: 58 y/o F S/P gastric bypass was doing well until yesterday when she developed lower abodeminal pain, right upper quadrant pain associated with nausea and vomiting. In the ER, she was noted to have elevated abc, elevated lactic acid, amylase and lipase. The ultrasound and cat scan revealed acute cholecystitis, normal pancreas and diverticulosis. Normal CBD - History Source History Provided By: Patient - Past Surgical History Past Surgical History: Yes: Bariatric Surgery (s/p gastric bypass), Tubal Ligation - Alcohol/Substance Use Hx Alcohol Use: No History of Substance Use: reports: None - Smoking History Smoking history: Never smoked Have you smoked in the past 12 months: No Aproximately how many cigarettes per day: 0 - Social History Usual Living Arrangement: With Spouse ADL: Independent Occupation: retired assistant dean of students History of Recent Travel: Yes ([place], moves back and forth ) Home Medications - Allergies Allergies/Adverse Reactions: Allergies Allergy/AdvReac Type Severity Reaction Status Date / Time Penicillins Allergy Intermediate Verified 02/17/19 04:16 - Home Medications Home Medications: Ambulatory Orders Imatinib Mesylate [Gleevec] 400 mg PO BID 03/09/12 Physical Exam-GI Vital Signs: Vital Signs Temperature 99.8 F H 02/17/19 11:00 Pulse Rate 89 02/17/19 11:00 Respiratory Rate 20 02/17/19 11:00 Blood Pressure 130/77 02/17/19 11:00 O2 Sat by Pulse Oximetry (%) 99 02/17/19 09:00 Constitutional: Yes: Well Nourished Eyes: Yes: Sclera Icterus HENT: Yes: Atraumatic Neck: Yes: Supple Cardiovascular: Yes: Regular Rate and Rhythm Respiratory: Yes: CTA Bilaterally ...Palpate: Yes: Soft, Tenderness (--ruq and suprapubic pain). No: Firm/Rigid, Guarding, Hepatomegaly, Mass, Pulsatile Mass, Splenomegaly Labs: CBC, BMP 02/17/19 05:50 02/17/19 05:50 INR, PTT INR 1.34 (0.83-1.09) H 02/16/19 21:31 Imaging - Results Cat Scan: Report Reviewed Ultrasound: Report Reviewed Problem List - Problems (1) Acute gallstone pancreatitis Assessment/Plan: normal CBD elevated Total bilirubin r/o CBD stone R> MRCP actigall 300mmg bid ice chips Code(s): K85.10 - BILIARY ACUTE PANCREATITIS WITHOUT NECROSIS OR INFECTION
[2019-02-17 17:07] LABS: BILIRUBIN,TOTAL 4.7 mg/dL (0.2-1); CALCIUM 8.2 mg/dL (8.5-10.1); CREATININE 0.9 mg/dL (0.55-1.3); POTASSIUM 3.4 mmol/L (3.5-5.1); TOT PROT 5.6 g/dl (6.4-8.2)
[2019-02-17] MEDS: URSODIOL 300 MG CAPSULE PO SCH (21:33)
[2019-02-17] MEDS ORDERED: IMATINIB 400 MG PO SCH (22:00)
[2019-02-17] MEDS ORDERED: CHLORHEXIDINE GLUCONATE 4% CLEANSER FOR DECOLONIZATION TP SCH (22:00)
[2019-02-18] MEDS ORDERED: ONDANSETRON 4 MG/2 ML VIAL IVPUSH PRN ×2 (00:01→17:06)
[2019-02-18] MEDS: AZTREONAM 1 GM in DEXTROSE 5%-WATER - 50 ML IVPB SCH ×3 (03:25→17:17)
[2019-02-18 06:38] LABS: BASO % 0.2 % (0-2.0); EOS % 1.9 % (0-4.5); HEMATOCRIT 30.5 % (32.4-45.2); HEMOGLOBIN 10.2 GM/dL (10.7-15.3); LYMPH % 6.5 % (8-40); MCH 29.1 pg (25.7-33.7); MCHC 33.5 g/dl (32.0-36.0); MONO % 5.1 % (3.8-10.2); NEUT % 86.3 % (42.8-82.8); PLATELET COUNT 101 K/MM3 (134-434); RDW 15.7 % (11.6-15.6); WHITE BLOOD COUNT 9.2 K/mm3 (4.0-10.0)
[2019-02-18 07:11] LABS: ALBUMIN 2.6 g/dl (3.4-5.0); BILIRUBIN,TOTAL 3.4 mg/dL (0.2-1); BLOOD UREA NITROGEN 9.3 mg/dL (7-18); CALCIUM 8.4 mg/dL (8.5-10.1); CREATININE 0.6 mg/dL (0.55-1.3); POTASSIUM 3.7 mmol/L (3.5-5.1); TOT PROT 5.3 g/dl (6.4-8.2)
[2019-02-18] MEDS: HEPARIN NA (PORCINE) 5,000 UNITS/ML 1ML VIAL SQ SCH ×3 (07:19→22:43)
[2019-02-18 08:51] LABS: ANISOCYTOSIS 0; MACROCYTOSIS 0; PLATELET ESTIMATE DECREASED
--- NOTE | 2019-02-18 08:55 | PN ---
Progress Note (short form) - Note Progress Note: 58yo F h/o cholecystitis and pancreatitis, pt seen and examined in the ICU. Pt states that she is feeling a lot better and pain is improved. Pt denies n/v, fever, chills. LFTs are trending down. Last Vital Signs Temp Pulse Resp BP Pulse Ox 99.3 F 93 H 25 H 148/80 95 02/18/19 06:00 02/18/19 06:00 02/18/19 06:00 02/18/19 06:00 02/17/19 21:00 CBC, BMP 02/18/19 05:35 02/18/19 05:35 PE: Gen: A&O x 3 Resp: breathing comfortably Abd: soft, nondistended, nontender Problem List - Problems (1) Cholecystitis Assessment/Plan: Plan -GI rec MRCP, will follow up results -cont NPO, IVF -will consider cholecystectomy once pt cleared and pancreatitis resolved. Pt seen and discussed with Dr. Bender who agrees. Code(s): K81.9 - CHOLECYSTITIS, UNSPECIFIED
--- NOTE | 2019-02-18 09:00 | PN ---
Physical Exam: SUBJECTIVE: Patient seen and examined on morning ICU rounds. Patient without any focal complaints at the current time. Denies nausea / vomiting, chest pain, SOB. Reports that her abdominal pain has greatly improved. Transferred from bed to bathroom and chair without incident. Continued on levaquin, flagyl, azactam. Patient with appetite, requesting food. OBJECTIVE: Vital Signs Period Temp Pulse Resp BP Sys/Khan Pulse Ox Last 24 Hr 98.3 F-99.8 F 87-98 11-26 113-148/60-87 95-99 GENERAL: Awake, alert, and fully oriented, in no acute distress. HEENT: NCAT, EOMI, normal morphologies. LUNGS: Breath sounds equal, clear to auscultation bilaterally, no wheezes, no crackles, no accessory muscle use. HEART: Regular rate and rhythm, normal S1/S2, no murmur, rub or gallop appreciated. ABDOMEN: Soft, nontender, nondistended, normoactive bowel sounds, no guarding, no rebound. EXTREMITIES: 2+ pulses, warm, well-perfused, no edema. NEUROLOGICAL: Cranial nerves grossly intact. Normal speech, gait not observed. SKIN: Warm, dry, no rashes or lesions noted Laboratory Results - last 24 hr 02/17/19 02/17/19 02/18/19 08:30 16:13 05:35 WBC RBC Hgb Hct MCV MCH MCHC RDW Plt Count MPV Absolute Neuts (auto) Neutrophils % Lymphocytes % Monocytes % Eosinophils % Basophils % Nucleated RBC % Sodium 142 141 Potassium 3.4 L 3.7 Chloride 112 H 110 H Carbon Dioxide 19 L 24 Anion Gap 12 7 L BUN 13.0 9.3 Creatinine 0.9 0.6 Est GFR (CKD-EPI)AfAm 81.11 115.63 Est GFR (CKD-EPI)NonAf 69.99 99.77 Random Glucose 129 H 113 H Lactic Acid 1.2 Calcium 8.2 L 8.4 L Total Bilirubin 4.7 H 3.4 H AST 86 H 46 H ALT 145 H 101 H Alkaline Phosphatase 126 H 132 H LD Total 196 Total Protein 5.6 L 5.3 L Albumin 3.0 L 2.6 L Lipase 955 H 102 02/18/19 05:35 WBC 9.2 RBC 3.50 L Hgb 10.2 L Hct 30.5 L MCV 87.0 MCH 29.1 MCHC 33.5 RDW 15.7 H Plt Count 101 L D MPV 9.0 Absolute Neuts (auto) 7.9 Neutrophils % 86.3 H Lymphocytes % 6.5 L D Monocytes % 5.1 D Eosinophils % 1.9 D Basophils % 0.2 D Nucleated RBC % 0 Sodium Potassium Chloride Carbon Dioxide Anion Gap BUN Creatinine Est GFR (CKD-EPI)AfAm Est GFR (CKD-EPI)NonAf Random Glucose Lactic Acid Calcium Total Bilirubin AST ALT Alkaline Phosphatase LD Total Total Protein Albumin Lipase Active Medications Generic Name Dose Route Start Last Admin Trade Name Freq PRN Reason Stop Dose Admin Acetaminophen 650 mg 02/17/19 03:25 02/17/19 18:19 Tylenol - PO 650 mg Q6H PRN Administration PAIN LEVEL 1-5 Chlorhexidine Gluconate 1 applic 02/17/19 22:00 02/17/19 21:34 Hibiclens For Decolonization - TP 1 applic HS SERGIO Administration Heparin Sodium (Porcine) 5,000 unit 02/17/19 06:00 02/18/19 07:19 Heparin - SQ 5,000 unit TID SERGIO Administration Metronidazole 500 mg in 100 mls @ 100 mls/hr 02/17/19 10:00 02/18/19 02:40 Flagyl 500mg Premixed Ivpb - IVPB 100 mls/hr Q8H-IV SERGIO Administration Levofloxacin 500 mg in 100 mls @ 100 mls/hr 02/18/19 10:00 Levaquin 500 Mg Premixed Ivpb - IVPB DAILY SERGIO Protocol Aztreonam 1 gm/ Dextrose 50 mls @ 100 mls/hr 02/17/19 10:00 02/18/19 03:25 IVPB 100 mls/hr Q8H-IV SERGIO Administration Protocol Morphine Sulfate 1 mg 02/17/19 03:25 Morphine Sulfate IVPUSH Q8H PRN PAIN LEVEL 6-10 Mupirocin 1 applic 02/17/19 10:00 02/17/19 21:33 Bactroban Ointment (For Decolonization) - NS 02/22/19 09:59 1 applic BID SERGIO Administration Ondansetron HCl 4 mg 02/18/19 00:01 Zofran Injection IVPUSH 02/21/19 23:59 Q6H PRN NAUSEA Ursodiol 300 mg 02/17/19 22:00 02/17/19 21:33 Actigal - PO 300 mg BID SERGIO Administration ASSESSMENT/PLAN: 58yo F PMH CML (on daily Gleevec) presenting to the emergency department for abdominal pain, nausea and NBNB emesis found to have pancreatitis and cholecystitis. Progressing appropriately, now stable for transfer to the floor. #Neuro - Pain control, PRN #CV - Initially hypotensive - Continue IVF, monitor vitals - Maintain MAP >65 #Pulm - KAYLYN - Maintain O2 SAt >92% # Renal - Hypokalemia - K(3.7), repleted - Trend lytes, replete as necessary - Monitor I&Os - Continue IVF #GI - cholecystitis - Trend LFTs, improving - Antiemetic PRN - Appreciate surgery recs - Appreciate GI recs #Endo - pancreatitis - Trend LFTs, lipase - improving #ID: - Trend CBC, monitor for fever - Appreciate ID recs # Heme/Onc - Chronic Myeloid leukemia - Imatinib Mesylate 400 mg PO BID #PPX: - Heparin SQ - TEDs #FEN: - Continue with IVF - Replace/correct lytes, - Advance diet per GI #Disposition: - Transfer to Med/Surg Visit type - Emergency Visit Emergency Visit: Yes ED Registration Date: 02/17/19 Care time: The patient presented to the Emergency Department on the above date and was hospitalized for further evaluation of their emergent condition. - New Patient This patient is new to me today: Yes Date on this admission: 02/18/19 - Critical Care Critical Care patient: Yes Total Critical Care Time (in minutes): 36 Critical Care Statement: The care of this patient involved high complexity decision making to prevent further life threatening deterioration of the patient 's condition and/or to evaluate & treat vital organ system(s) failure or risk of failure. ATTENDING PHYSICIAN STATEMENT I saw and evaluated the patient. I reviewed the resident's note and discussed the case with the resident. I agree with the resident's findings and plan as documented. SUBJECTIVE: OBJECTIVE: ASSESSMENT AND PLAN:
--- NOTE | 2019-02-18 09:12 | PN ---
Progress Note (short form) - Note Progress Note: fatigued, hard to sleep in the icu no fevers no chills Vital Signs Period Temp Pulse Resp BP Sys/Khan Pulse Ox Last 24 Hr 98.5 F-99.8 F 87-98 02-12 113-148/60-87 95 cor-rrr lungs clear abd soft,nt ext no edema CBC, BMP 02/18/19 05:35 02/18/19 05:35 Microbiology 02/16/19 21:31 Urine - Urine Clean Catch Urine Culture - Preliminary Lactose Fermenting Neg Bacilli 02/17/19 08:25 Blood - Peripheral Venous Blood Culture - Preliminary NO GROWTH OBTAINED AFTER 24 HOURS, INCUBATION TO CONTINUE FOR 4 DAYS. 02/17/19 08:30 Blood - Peripheral Venous Blood Culture - Preliminary NO GROWTH OBTAINED AFTER 24 HOURS, INCUBATION TO CONTINUE FOR 4 DAYS. Laboratory Tests 02/16/19 02/17/19 02/18/19 21:31 05:50 05:35 Total Bilirubin 5.7 H 5.2 H 3.4 H AST 135 H 87 H 46 H ALT 192 H 147 H 101 H Alkaline Phosphatase 223 H 124 H 132 H Lipase 51038 H 102 a/p gallstone pancreatitis cholycystitis r/o choledocholithiasis history of gastric bypass CML penicillin allergy awaiting MRCP to evaluated for choledocholithiasis lfts trnding down pain resolved continue levaquin/azactam/flagyl GI and surgery f/u Problem List - Problems (1) Biliary sepsis Code(s): K83.09 - OTHER CHOLANGITIS (2) Acute gallstone pancreatitis Code(s): K85.10 - BILIARY ACUTE PANCREATITIS WITHOUT NECROSIS OR INFECTION (3) Choledocholithiasis Code(s): K80.50 - CALCULUS OF BILE DUCT W/O CHOLANGITIS OR CHOLECYST W/O OBST (4) Cholecystitis Code(s): K81.9 - CHOLECYSTITIS, UNSPECIFIED (5) CML (chronic myelocytic leukemia) Code(s): C92.10 - CHRONIC MYELOID LEUK, BCR/ABL-POSITIVE, NOT ACHIEVE REMIS (6) Penicillin allergy Code(s): Z88.0 - ALLERGY STATUS TO PENICILLIN
[2019-02-18] MEDS: URSODIOL 300 MG CAPSULE PO SCH ×2 (09:43→22:43)
[2019-02-18] MEDS: MUPIROCIN 2% TOPICAL OINTMENT FOR DECOLONIZATION NS SCH ×2 (09:44→22:36)
--- NOTE | 2019-02-18 10:26 | PN ---
Progress Note, Physician Chief Complaint: patient seen and examiend sitting in chair lft trending down - Current Medication List Current Medications: Active Medications Acetaminophen (Tylenol -) 650 mg PO Q6H PRN PRN Reason: PAIN LEVEL 1-5 Last Admin: 02/17/19 18:19 Dose: 650 mg Chlorhexidine Gluconate (Hibiclens For Decolonization -) 1 applic TP HS [facility] Last Admin: 02/17/19 21:34 Dose: 1 applic Heparin Sodium (Porcine) (Heparin -) 5,000 unit SQ TID [facility] Last Admin: 02/18/19 07:19 Dose: 5,000 unit Metronidazole (Flagyl 500mg Premixed Ivpb -) 500 mg in 100 mls @ 100 mls/hr IVPB Q8H-IV [facility] Last Admin: 02/18/19 09:44 Dose: 100 mls/hr Levofloxacin (Levaquin 500 Mg Premixed Ivpb -) 500 mg in 100 mls @ 100 mls/hr IVPB DAILY [facility]; Protocol Last Admin: 02/18/19 09:43 Dose: 100 mls/hr Aztreonam 1 gm/ Dextrose 50 mls @ 100 mls/hr IVPB Q8H-IV [facility]; Protocol Last Admin: 02/18/19 03:25 Dose: 100 mls/hr Morphine Sulfate (Morphine Sulfate) 1 mg IVPUSH Q8H PRN PRN Reason: PAIN LEVEL 6-10 Mupirocin (Bactroban Ointment (For Decolonization) -) 1 applic NS BID [facility] Stop: 02/22/19 09:59 Last Admin: 02/18/19 09:44 Dose: 1 applic Ondansetron HCl (Zofran Injection) 4 mg IVPUSH Q6H PRN PRN Reason: NAUSEA Stop: 02/21/19 23:59 Ursodiol (Actigal -) 300 mg PO BID [facility] Last Admin: 02/18/19 09:43 Dose: 300 mg - Objective Vital Signs: Vital Signs Temperature 99.3 F 02/18/19 06:00 Pulse Rate 93 H 02/18/19 06:00 Respiratory Rate 25 H 02/18/19 06:00 Blood Pressure 148/80 02/18/19 06:00 O2 Sat by Pulse Oximetry (%) 95 02/17/19 21:00 Constitutional: Yes: Calm Eyes: Yes: Sclera Icterus Cardiovascular: Yes: Regular Rate and Rhythm, S1, S2 Respiratory: Yes: CTA Bilaterally Gastrointestinal: Yes: Normal Bowel Sounds, Soft Edema: No Neurological: Yes: Alert, Oriented Labs: CBC, BMP 02/18/19 05:35 02/18/19 05:35 INR, PTT INR 1.34 (0.83-1.09) H 02/16/19 21:31 Problem List - Problems (1) Acute gallstone pancreatitis Assessment/Plan: awaiting MRI of abdomen started on actigal GI on board iv abx NPO for now except ice chips Code(s): K85.10 - BILIARY ACUTE PANCREATITIS WITHOUT NECROSIS OR INFECTION (2) CML (chronic myelocytic leukemia) Assessment/Plan: hold gleevac for now can folow up with her oncologist on discharge Code(s): C92.10 - CHRONIC MYELOID LEUK, BCR/ABL-POSITIVE, NOT ACHIEVE REMIS
--- NOTE | 2019-02-18 10:41 | EKG ---
Test Reason : Blood Pressure : / mmHG Vent. Rate : 106 BPM Atrial Rate : 106 BPM P-R Int : 146 ms QRS Dur : 104 ms QT Int : 352 ms P-R-T Axes : 053 -24 030 degrees QTc Int : 467 ms SINUS TACHYCARDIA OTHERWISE NORMAL ECG WHEN COMPARED WITH ECG OF 09-MAR-2012 13:59, LIKELY NO SIGNIFICANT CHANGES Confirmed by SELENA BERG MD ([id number]) on 02/18/2019 10:41:27 AM Referred By: Confirmed By:SELENA BERG MD
[2019-02-18] MEDS ORDERED: DEXTROSE 5%-WATER - 50 ML IVPB ONE ×2 (12:03→16:41)
[2019-02-18] MEDS ORDERED: AZTREONAM 1 GM VIAL (RESTRICTED TO ID) ONE ×2 (12:03→16:41)
--- NOTE | 2019-02-18 12:19 | PN ---
Teaching Attending Note Name of Resident: Maged Stevens ATTENDING PHYSICIAN STATEMENT I saw and evaluated the patient. I reviewed the resident's note and discussed the case with the resident. I agree with the resident's findings and plan as documented. SUBJECTIVE: Patient seen and examined in the ICU. Awake and alert. Feels overall better. No CP or SOB. Abdominal pain is better. Intake & Output 02/15/19 02/16/19 02/17/19 02/18/19 23:59 23:59 23:59 23:59 Intake Total 2250 350 Output Total 150 400 Balance 2100 -50 Weight 224 lb 231 lb 11.2 oz Last Vital Signs Temp Pulse Resp BP Pulse Ox 99.3 F 93 H 25 H 148/80 95 02/18/19 06:00 02/18/19 06:00 02/18/19 06:00 02/18/19 06:00 02/17/19 21:00 Active Medications Acetaminophen (Tylenol -) 650 mg PO Q6H PRN PRN Reason: PAIN LEVEL 1-5 Last Admin: 02/17/19 18:19 Dose: 650 mg Chlorhexidine Gluconate (Hibiclens For Decolonization -) 1 applic TP HS [facility] Last Admin: 02/17/19 21:34 Dose: 1 applic Heparin Sodium (Porcine) (Heparin -) 5,000 unit SQ TID [facility] Last Admin: 02/18/19 07:19 Dose: 5,000 unit Metronidazole (Flagyl 500mg Premixed Ivpb -) 500 mg in 100 mls @ 100 mls/hr IVPB Q8H-IV [facility] Last Admin: 02/18/19 09:44 Dose: 100 mls/hr Levofloxacin (Levaquin 500 Mg Premixed Ivpb -) 500 mg in 100 mls @ 100 mls/hr IVPB DAILY [facility]; Protocol Last Admin: 02/18/19 09:43 Dose: 100 mls/hr Aztreonam 1 gm/ Dextrose 50 mls @ 100 mls/hr IVPB Q8H-IV [facility]; Protocol Last Admin: 02/18/19 03:25 Dose: 100 mls/hr Morphine Sulfate (Morphine Sulfate) 1 mg IVPUSH Q8H PRN PRN Reason: PAIN LEVEL 6-10 Mupirocin (Bactroban Ointment (For Decolonization) -) 1 applic NS BID [facility] Stop: 02/22/19 09:59 Last Admin: 02/18/19 09:44 Dose: 1 applic Ondansetron HCl (Zofran Injection) 4 mg IVPUSH Q6H PRN PRN Reason: NAUSEA Stop: 02/21/19 23:59 Ursodiol (Actigal -) 300 mg PO BID [facility] Last Admin: 02/18/19 09:43 Dose: 300 mg Constitutional: Yes: Well Nourished, NAD, Obese Eyes: Yes: Conjunctiva Clear, EOM Intact, PERRL HENT: Yes: Atraumatic, Normocephalic. No: Rhinnorhea, Thrush Neck: Yes: Trachea Midline. No: Lymphadenopathy Cardiovascular: Yes: Regular Rate and Rhythm, S1, S2. No: Murmur Respiratory: Yes: CTA Bilaterally. No: Accessory Muscle Use Gastrointestinal: Yes: Soft, Abdomen, Obese, Mild Tenderness (L>R UQ) ...Rectal Exam: Yes: Deferred Renal/: Yes: WNL Breast(s): Yes: WNL Musculoskeletal: Yes: WNL Extremities: Yes: WNL Edema: Yes Edema: LLE: Trace, RLE: Trace Peripheral Pulses WNL: Yes Integumentary: Yes: WNL Neurological: Yes: WNL, Alert, Non-focal ...Motor Strength: WNL Psychiatric: Yes: WNL Labs: Laboratory Results - last 24 hr 02/17/19 02/17/19 02/18/19 08:30 16:13 05:35 WBC RBC Hgb Hct MCV MCH MCHC RDW Plt Count MPV Absolute Neuts (auto) Neutrophils % Neutrophils % (Manual) Band Neutrophils % Lymphocytes % Lymphocytes % (Manual) Monocytes % Monocytes % (Manual) Eosinophils % Eosinophils % (Manual) Basophils % Basophils % (Manual) Myelocytes % (Man) Promyelocytes % (Man) Blast Cells % (Manual) Nucleated RBC % Metamyelocytes Hypochromia Platelet Estimate Polychromasia Poikilocytosis Anisocytosis Microcytosis Macrocytosis Sodium 142 141 Potassium 3.4 L 3.7 Chloride 112 H 110 H Carbon Dioxide 19 L 24 Anion Gap 12 7 L BUN 13.0 9.3 Creatinine 0.9 0.6 Est GFR (CKD-EPI)AfAm 81.11 115.63 Est GFR (CKD-EPI)NonAf 69.99 99.77 Random Glucose 129 H 113 H Lactic Acid 1.2 Calcium 8.2 L 8.4 L Total Bilirubin 4.7 H 3.4 H AST 86 H 46 H ALT 145 H 101 H Alkaline Phosphatase 126 H 132 H LD Total 196 Total Protein 5.6 L 5.3 L Albumin 3.0 L 2.6 L Lipase 955 H 102 02/18/19 05:35 WBC 9.2 RBC 3.50 L Hgb 10.2 L Hct 30.5 L MCV 87.0 MCH 29.1 MCHC 33.5 RDW 15.7 H Plt Count 101 L D MPV 9.0 Absolute Neuts (auto) 7.9 Neutrophils % 86.3 H Neutrophils % (Manual) 82.0 Band Neutrophils % 6.0 Lymphocytes % 6.5 L D Lymphocytes % (Manual) 8.0 D Monocytes % 5.1 D Monocytes % (Manual) 1 L Eosinophils % 1.9 D Eosinophils % (Manual) 0.0 Basophils % 0.2 D Basophils % (Manual) 0.0 Myelocytes % (Man) 0 Promyelocytes % (Man) 0 Blast Cells % (Manual) 0 Nucleated RBC % 0 Metamyelocytes 0 Hypochromia 0 Platelet Estimate Decreased Polychromasia 0 Poikilocytosis 0 Anisocytosis 0 Microcytosis 0 Macrocytosis 0 Sodium Potassium Chloride Carbon Dioxide Anion Gap BUN Creatinine Est GFR (CKD-EPI)AfAm Est GFR (CKD-EPI)NonAf Random Glucose Lactic Acid Calcium Total Bilirubin AST ALT Alkaline Phosphatase LD Total Total Protein Albumin Lipase Problem List - Problems (1) Acute gallstone pancreatitis Code(s): K85.10 - BILIARY ACUTE PANCREATITIS WITHOUT NECROSIS OR INFECTION (2) CML (chronic myelocytic leukemia) Code(s): C92.10 - CHRONIC MYELOID LEUK, BCR/ABL-POSITIVE, NOT ACHIEVE REMIS (3) Cholecystitis Code(s): K81.9 - CHOLECYSTITIS, UNSPECIFIED (4) Elevated lactic acid level Code(s): R79.89 - OTHER SPECIFIED ABNORMAL FINDINGS OF BLOOD CHEMISTRY (5) Hypokalemia Code(s): E87.6 - HYPOKALEMIA (6) Sepsis associated hypotension Code(s): A41.9 - SEPSIS, UNSPECIFIED ORGANISM; I95.9 - HYPOTENSION, UNSPECIFIED Assessment/Plan LLL atelectasis D/W GI to advance diet O2 as needed Incentive Spirometry Follow I & O Pain control Gleevec was stopped Floor Dr Pittman
[2019-02-18] MEDS ORDERED: MORPHINE SULFATE 2 MG/ML VIAL IVPUSH PRN (17:06)
[2019-02-18] MEDS: CHLORHEXIDINE GLUCONATE 4% CLEANSER FOR DECOLONIZATION TP SCH (22:36)
[2019-02-18] MEDS: ACETAMINOPHEN 325 MG TABLET (FP) PO PRN (22:42)
[2019-02-19] MEDS: AZTREONAM 1 GM in DEXTROSE 5%-WATER - 50 ML IVPB SCH ×3 (02:58→19:52)
[2019-02-19] MEDS: HEPARIN NA (PORCINE) 5,000 UNITS/ML 1ML VIAL SQ SCH ×3 (05:51→22:24)
--- NOTE | 2019-02-19 08:32 | PN ---
Progress Note (short form) - Note Progress Note: Pt seen and examined on regular floor. Reports she is feeling better, has some lower pelvic pain. Has been oob ambulating to the restroom. Was NPO, diet has been ordered by GI. Voiding without issue. Denies cp/sob, n/v/d. Vital Signs Temp 98.4 F 02/19/19 05:00 Pulse 82 02/19/19 05:00 Resp 18 02/19/19 05:00 BP 120/71 02/19/19 05:00 Pulse Ox 97 02/18/19 22:00 Intake & Output 02/18/19 02/18/19 02/19/19 11:59 23:59 11:59 Intake Total 350 1000 Output Total 400 Balance -50 1000 Intake: IV 250 LACTATED RINGERS SOLUTION 250 1,000 ml In 1,000 ml @ 125 mls/hr IV [facility]IR [facility] Rx#:[id number] IVPB 100 400 Oral 600 Output: Urine 400 Void 400 Other: Voiding Method Toilet Toilet # Unmeasured Voids Void 1 2 1 Bowel Movement No No CBC, BMP 02/18/19 05:35 02/18/19 05:35 Gen: awake, alert, nad Resp: unlabored on RA Abdo: soft, minimally ttp in pelvic region. ND, +bowel sounds A/P: 58 y/o F w/ PMHx gastric bypass, CML (on daily Gleevec) a/w n/v and abdominal pain, found to have Biliary Pancreatitis secondary to Gallstones, awaiting MRCP. -Awaiting MRCP -Will f/u for Lap mariya likely Monday d/w attending Dr Bender
--- NOTE | 2019-02-19 08:32 | PN.GI ---
GI Progress Note Subjective: Patient continues with dull lower abdominal pain but she states it is improving. Denies nausea, vomiting, rectal bleeding. Labs show LFTs with downtrend and Total Bili showing downtrend as well with level 3.4. - Objective Vital Signs: Vital Signs Temperature 98.4 F 02/19/19 05:00 Pulse Rate 82 02/19/19 05:00 Respiratory Rate 18 02/19/19 05:00 Blood Pressure 120/71 02/19/19 05:00 O2 Sat by Pulse Oximetry (%) 97 02/18/19 22:00 Constitutional: No Distress, Calm Eyes: Yes: Conjunctiva Clear HENT: Yes: Atraumatic Cardiovascular: Yes: Regular Rate and Rhythm Respiratory: Yes: Regular, CTA Bilaterally Gastrointestinal Inspection: Yes: WNL. No: Ascites, Distention, Hernia, Scars, Other ...Auscultate: Yes: Normoactive Bowel Sounds. No: Hyperactive Bowel Sounds, Hypoactive Bowel Sounds, No Bowel Sounds, Other ...Palpate: Yes: Soft, Tenderness (lower abdomen, RUQ). No: Firm/Rigid, Guarding, Hepatomegaly, Mass, Pulsatile Mass, Splenomegaly, Tenderness, Epigastium, Tenderness, Rebound, Other ...Percussion: Yes: Tympanitic. No: Dullness, Fluid Wave, Other Neurological: Yes: Alert, Oriented Psychiatric: Yes: Alert, Oriented Labs: CBC, BMP 02/18/19 05:35 02/18/19 05:35 INR, PTT INR 1.34 (0.83-1.09) H 02/16/19 21:31 Problem List - Problems (1) Acute gallstone pancreatitis Assessment/Plan: normal CBD elevated Total bilirubin r/o CBD stone Biliary Pancreatitis secondary to Gallstones Pancreatitis secondary to Gleevac R> MRCP ordered actigall 300mg bid ice [employer] Code(s): K85.10 - BILIARY ACUTE PANCREATITIS WITHOUT NECROSIS OR INFECTION
[2019-02-19 09:05] LABS: BASO % 0.4 % (0-2.0); EOS % 3.4 % (0-4.5); HEMATOCRIT 30.6 % (32.4-45.2); HEMOGLOBIN 10.2 GM/dL (10.7-15.3); LYMPH % 11.4 % (8-40); MCH 28.9 pg (25.7-33.7); MCHC 33.3 g/dl (32.0-36.0); MEAN CELL VOLUME 86.7 fl (80-96); MEAN PLT VOLUME 8.8 fl (7.5-11.1); MONO % 7.2 % (3.8-10.2); NEUT % 77.6 % (42.8-82.8); PLATELET COUNT 127 K/MM3 (134-434); RBC 3.53 M/mm3 (3.60-5.2); RDW 15.5 % (11.6-15.6); WHITE BLOOD COUNT 6.8 K/mm3 (4.0-10.0)
[2019-02-19 09:27] LABS: ALBUMIN 2.4 g/dl (3.4-5.0); BILIRUBIN,TOTAL 2.1 mg/dL (0.2-1); BLOOD UREA NITROGEN 10.4 mg/dL (7-18); CALCIUM 8.4 mg/dL (8.5-10.1); CREATININE 0.6 mg/dL (0.55-1.3); MAGNESIUM 1.9 mg/dL (1.8-2.4); PHOSPHOROUS 1.5 mg/dL (2.5-4.9); POTASSIUM 3.5 mmol/L (3.5-5.1); TOT PROT 5.1 g/dl (6.4-8.2)
[2019-02-19] MEDS ORDERED: PT OWN MED DRAWER 7, Y5N ONE (09:28)
[2019-02-19] MEDS: URSODIOL 300 MG CAPSULE PO SCH ×2 (09:32→22:23)
--- NOTE | 2019-02-19 10:09 | PN ---
Progress Note, Physician - Current Medication List Current Medications: Active Medications Acetaminophen (Tylenol -) 650 mg PO Q6H PRN PRN Reason: PAIN LEVEL 1-5 Last Admin: 02/18/19 22:42 Dose: 650 mg Chlorhexidine Gluconate (Hibiclens For Decolonization -) 1 applic TP HS [facility] [place] Last Admin: 02/18/19 22:36 Dose: Not Given Heparin Sodium (Porcine) (Heparin -) 5,000 unit SQ TID [facility] Last Admin: 02/19/19 05:51 Dose: 5,000 unit Aztreonam 1 gm/ Dextrose 50 mls @ 100 mls/hr IVPB Q8H-IV [facility] [place]; Protocol Last Admin: 02/19/19 02:58 Dose: 100 mls/hr Metronidazole (Flagyl 500mg Premixed Ivpb -) 500 mg in 100 mls @ 100 mls/hr IVPB Q8H-IV [facility] [place] Last Admin: 02/19/19 09:34 Dose: 100 mls/hr Levofloxacin (Levaquin 500 Mg Premixed Ivpb -) 500 mg in 100 mls @ 100 mls/hr IVPB DAILY [facility] [place]; Protocol Morphine Sulfate (Morphine Sulfate) 1 mg IVPUSH Q8H PRN PRN Reason: PAIN LEVEL 6-10 Mupirocin (Bactroban Ointment (For Decolonization) -) 1 applic NS BID [facility] Stop: 02/22/19 09:59 Last Admin: 02/18/19 22:36 Dose: Not Given Ondansetron HCl (Zofran Injection) 4 mg IVPUSH Q6H PRN PRN Reason: NAUSEA Stop: 02/21/19 23:59 Ursodiol (Actigal -) 300 mg PO BID [facility] [place] Last Admin: 02/19/19 09:32 Dose: 300 mg - Objective Vital Signs: Vital Signs Temperature 98.4 F 02/19/19 05:00 Pulse Rate 82 02/19/19 05:00 Respiratory Rate 18 02/19/19 05:00 Blood Pressure 120/71 02/19/19 05:00 O2 Sat by Pulse Oximetry (%) 97 02/18/19 22:00 Cardiovascular: Yes: S1, S2 Respiratory: Yes: Regular, CTA Bilaterally Gastrointestinal: Yes: Normal Bowel Sounds, Soft. No: Tenderness Labs: CBC, BMP 02/19/19 07:27 02/19/19 07:27 INR, PTT INR 1.34 (0.83-1.09) H 02/16/19 21:31 Problem List - Problems (1) Acute gallstone pancreatitis Assessment/Plan: Abd US: moderate gallbladder distention with choleithiasis, and abnormal gallbladder wall thickening with mild pericholecystic fluid consistent with acute cholecystitis. CT Abd: small gallstones are noted, acute cholecystitis Lipase: [id number] Laboratory Tests 02/16/19 02/16/19 02/16/19 21:31 21:31 21:31 WBC 2.1 L Hgb 11.2 Plt Count 87 L Potassium 2.8 L* Creatinine 1.0 Lactic Acid 3.9 H* Total Bilirubin 5.7 H AST 135 H ALT 192 H Alkaline Phosphatase 223 H Troponin I Lipase 91541 H 02/16/19 02/17/19 02/17/19 21:31 05:50 05:50 WBC 8.3 Hgb 10.0 L Plt Count 83 L Potassium 3.3 L Creatinine 0.9 Lactic Acid Total Bilirubin 5.2 H AST 87 H ALT 147 H Alkaline Phosphatase 124 H Troponin I < 0.02 Lipase - monitor LFTs, bili trend - IVF and antibiotics, - continue with Analgesia PRN - continue with antiemetic PRN - repeat cbc, CMP in AM - ID consult appreciated - follow up surgery consult - follow up GI consult --awaiting MRI of abdomen -started on actigal Code(s): K85.10 - BILIARY ACUTE PANCREATITIS WITHOUT NECROSIS OR INFECTION (2) CML (chronic myelocytic leukemia) Assessment/Plan: hold gleevac for now can follow up with her oncologist on discharge Code(s): C92.10 - CHRONIC MYELOID LEUK, BCR/ABL-POSITIVE, NOT ACHIEVE REMIS
[2019-02-19] MEDS ORDERED: DEXTROSE 5%-WATER - 50 ML IVPB ONE ×2 (11:01→19:24)
[2019-02-19] MEDS ORDERED: AZTREONAM 1 GM VIAL (RESTRICTED TO ID) ONE ×2 (11:01→19:24)
[2019-02-19] MEDS: MUPIROCIN 2% TOPICAL OINTMENT FOR DECOLONIZATION NS SCH ×2 (11:20→22:30)
--- NOTE | 2019-02-19 11:53 | PN ---
Progress Note (short form) - Note Progress Note: Attending Surgeon Seen in f/u; no c/o; tolerating diet VSS AF abdo-soft; flat and non tender LFT's and bili and lipase slowly trending down MRCP-pending IMP: gallstone pancreatitis PLAN: Continue present tx. and await MRCP results. Sg Bender MD FACS
[2019-02-19] MEDS: ACETAMINOPHEN 325 MG TABLET (FP) PO PRN (15:01)
[2019-02-19] MEDS: CHLORHEXIDINE GLUCONATE 4% CLEANSER FOR DECOLONIZATION TP SCH (22:30)
[2019-02-20] MEDS ORDERED: AZTREONAM 1 GM VIAL (RESTRICTED TO ID) ONE ×2 (02:08→12:21)
[2019-02-20] MEDS ORDERED: DEXTROSE 5%-WATER - 50 ML IVPB ONE ×2 (02:09→12:22)
[2019-02-20] MEDS: AZTREONAM 1 GM in DEXTROSE 5%-WATER - 50 ML IVPB SCH ×2 (02:33→13:21)
[2019-02-20] MEDS: HEPARIN NA (PORCINE) 5,000 UNITS/ML 1ML VIAL SQ SCH ×3 (06:34→22:05)
--- NOTE | 2019-02-20 08:12 | PN.GI ---
GI Progress Note Subjective: Patient states abdominal pain is improving. Denies nausea, vomiting, diarrhea, rectal bleeding. Labs showing downtrend in LFTs and total bili now 2.1 - Objective Vital Signs: Vital Signs Temperature 98.6 F 02/20/19 06:00 Pulse Rate 76 02/20/19 06:00 Respiratory Rate 18 02/20/19 06:00 Blood Pressure 137/73 02/20/19 06:00 O2 Sat by Pulse Oximetry (%) 97 02/19/19 21:00 Constitutional: No Distress, Calm, Obese Eyes: Yes: Conjunctiva Clear HENT: Yes: Atraumatic Cardiovascular: Yes: Regular Rate and Rhythm Respiratory: Yes: Regular, CTA Bilaterally Gastrointestinal Inspection: Yes: WNL. No: Ascites, Distention, Hernia, Scars, Other ...Auscultate: Yes: Normoactive Bowel Sounds. No: Hyperactive Bowel Sounds, Hypoactive Bowel Sounds, No Bowel Sounds, Other ...Palpate: Yes: Soft, Tenderness (diffuse, mild). No: Firm/Rigid, Guarding, Hepatomegaly, Mass, Pulsatile Mass, Splenomegaly, Tenderness, Epigastium, Tenderness, Rebound, Other ...Percussion: Yes: Tympanitic. No: Dullness, Fluid Wave, Other Neurological: Yes: Alert, Oriented Psychiatric: Yes: Alert, Oriented Labs: CBC, BMP 02/19/19 07:27 02/19/19 07:27 INR, PTT INR 1.34 (0.83-1.09) H 02/16/19 21:31 Problem List - Problems (1) Acute gallstone pancreatitis Assessment/Plan: normal CBD elevated Total bilirubin r/o CBD stone Biliary Pancreatitis secondary to Gallstones Pancreatitis secondary to Gleevac R> MRCP ordered actigall 300mg bid total Bili 2.1 Code(s): K85.10 - BILIARY ACUTE PANCREATITIS WITHOUT NECROSIS OR INFECTION
[2019-02-20] MEDS: MUPIROCIN 2% TOPICAL OINTMENT FOR DECOLONIZATION NS SCH ×2 (09:37→22:07)
[2019-02-20] MEDS: URSODIOL 300 MG CAPSULE PO SCH ×2 (09:38→22:05)
--- NOTE | 2019-02-20 11:12 | PN ---
Progress Note, Physician Chief Complaint: Gallstone Pancreatitis CML History of Present Illness: Previous notes and events reviewed awake and alert NAD sts abdominal pain is improving Abdominal MRI done - Current Medication List Current Medications: Active Medications Acetaminophen (Tylenol -) 650 mg PO Q6H PRN PRN Reason: PAIN LEVEL 1-5 Last Admin: 02/19/19 15:01 Dose: 650 mg Chlorhexidine Gluconate (Hibiclens For Decolonization -) 1 applic TP HS [facility] Last Admin: 02/19/19 22:30 Dose: Not Given Heparin Sodium (Porcine) (Heparin -) 5,000 unit SQ TID [facility] Last Admin: 02/20/19 06:34 Dose: 5,000 unit Aztreonam 1 gm/ Dextrose 50 mls @ 100 mls/hr IVPB Q8H-IV [facility]; Protocol Last Admin: 02/20/19 02:33 Dose: 100 mls/hr Metronidazole (Flagyl 500mg Premixed Ivpb -) 500 mg in 100 mls @ 100 mls/hr IVPB Q8H-IV [facility] Last Admin: 02/20/19 09:38 Dose: 100 mls/hr Levofloxacin (Levaquin 500 Mg Premixed Ivpb -) 500 mg in 100 mls @ 100 mls/hr IVPB DAILY [facility]; Protocol Last Admin: 02/19/19 11:55 Dose: 100 mls/hr Morphine Sulfate (Morphine Sulfate) 1 mg IVPUSH Q8H PRN PRN Reason: PAIN LEVEL 6-10 Mupirocin (Bactroban Ointment (For Decolonization) -) 1 applic NS BID [facility] Stop: 02/22/19 09:59 Last Admin: 02/20/19 09:37 Dose: Not Given Ondansetron HCl (Zofran Injection) 4 mg IVPUSH Q6H PRN PRN Reason: NAUSEA Stop: 02/21/19 23:59 Ursodiol (Actigal -) 300 mg PO BID [facility] Last Admin: 02/20/19 09:38 Dose: 300 mg - Objective Vital Signs: Vital Signs Temperature 98.6 F 02/20/19 06:00 Pulse Rate 76 02/20/19 06:00 Respiratory Rate 18 02/20/19 09:00 Blood Pressure 137/73 02/20/19 06:00 O2 Sat by Pulse Oximetry (%) 95 02/20/19 09:00 Constitutional: Yes: No Distress, Calm, Obese Eyes: Yes: Conjunctiva Clear HENT: Yes: Atraumatic Cardiovascular: Yes: Regular Rate and Rhythm Respiratory: Yes: Regular, CTA Bilaterally Gastrointestinal: Yes: Normal Bowel Sounds, Soft, Abdomen, Obese Musculoskeletal: Yes: WNL Extremities: Yes: WNL Edema: No Neurological: Yes: Alert, Oriented Psychiatric: Yes: Alert, Oriented Labs: CBC, BMP 02/19/19 07:27 02/19/19 07:27 INR, PTT INR 1.34 (0.83-1.09) H 02/16/19 21:31 Microbiology 02/17/19 08:25 Blood - Peripheral Venous Blood Culture - Preliminary NO GROWTH OBTAINED AFTER 72 HOURS, INCUBATION TO CONTINUE FOR 2 DAYS. 02/17/19 08:30 Blood - Peripheral Venous Blood Culture - Preliminary NO GROWTH OBTAINED AFTER 72 HOURS, INCUBATION TO CONTINUE FOR 2 DAYS. 02/16/19 21:31 Urine - Urine Clean Catch Urine Culture - Final Escherichia Coli Problem List - Problems (1) Acute gallstone pancreatitis Assessment/Plan: -GI on board -CTAP shows no evidence of acute appendicitis, bilateral lower lobe atelectasis , abnormal gallbladder with small gallstones and suggestive of possible acute cholecystitis -Abd US shows cholelithiasis and acute cholecystitis -Abdominal MRCP done, result pending -Actigal -Total Bili 2.1 -Azactam, Flagyl, Levaquin -no leukocytosis Code(s): K85.10 - BILIARY ACUTE PANCREATITIS WITHOUT NECROSIS OR INFECTION (2) CML (chronic myelocytic leukemia) Assessment/Plan: -Gleevac on hold Code(s): C92.10 - CHRONIC MYELOID LEUK, BCR/ABL-POSITIVE, NOT ACHIEVE REMIS (3) Cholecystitis Assessment/Plan: -Actigal -GI on board -CTAP shows no evidence of acute appendicitis, bilateral lower lobe atelectasis , abnormal gallbladder with small gallstones and suggestive of possible acute cholecystitis -Abd US shows cholelithiasis and acute cholecystitis -Abdominal MRCP done, result pending -Azactam, Flagyl, Levaquin Code(s): K81.9 - CHOLECYSTITIS, UNSPECIFIED Assessment/Plan see problem list dvt ppx
[2019-02-20] MEDS ORDERED: PT OWN MED DRAWER 7, Y5N ONE (12:23)
--- NOTE | 2019-02-20 16:08 | PN ---
Progress Note (short form) - Note Progress Note: still some RUQ discomfort had MRCP Vital Signs Period Temp Pulse Resp BP Sys/Khan Pulse Ox Last 24 Hr 97.8 F-98.8 F 76-84 18-18 111-151/63-87 95-97 cor-rrr lungs clear abd soft, mild RUQ discomfort to palpation ext no edema MRCP results noted no cbd duct dilatation, gb with stones and mild wall thickening CBC, BMP 02/19/19 07:27 02/19/19 07:27 no new labs today Microbiology 02/17/19 08:25 Blood - Peripheral Venous Blood Culture - Preliminary NO GROWTH OBTAINED AFTER 72 HOURS, INCUBATION TO CONTINUE FOR 2 DAYS. 02/17/19 08:30 Blood - Peripheral Venous Blood Culture - Preliminary NO GROWTH OBTAINED AFTER 72 HOURS, INCUBATION TO CONTINUE FOR 2 DAYS. 02/16/19 21:31 Urine - Urine Clean Catch Urine Culture - Final Escherichia Coli a/p gallstone pancreatitis cholycystitis r/o choledocholithiasis history of gastric bypass CML penicillin allergy mrcp noted- gi and sugery f/u awaited lfts trnding down pain resolved continue levaquin//flagyl Problem List - Problems (1) Biliary sepsis Code(s): K83.09 - OTHER CHOLANGITIS (2) Acute gallstone pancreatitis Code(s): K85.10 - BILIARY ACUTE PANCREATITIS WITHOUT NECROSIS OR INFECTION (3) Choledocholithiasis Code(s): K80.50 - CALCULUS OF BILE DUCT W/O CHOLANGITIS OR CHOLECYST W/O OBST (4) Cholecystitis Code(s): K81.9 - CHOLECYSTITIS, UNSPECIFIED (5) CML (chronic myelocytic leukemia) Code(s): C92.10 - CHRONIC MYELOID LEUK, BCR/ABL-POSITIVE, NOT ACHIEVE REMIS (6) Penicillin allergy Code(s): Z88.0 - ALLERGY STATUS TO PENICILLIN
[2019-02-20] MEDS: CHLORHEXIDINE GLUCONATE 4% CLEANSER FOR DECOLONIZATION TP SCH (22:07)
[2019-02-21] MEDS: HEPARIN NA (PORCINE) 5,000 UNITS/ML 1ML VIAL SQ SCH ×3 (07:03→21:14)
--- NOTE | 2019-02-21 07:46 | PN.GI ---
GI Progress Note Subjective: Patient states abdominal pain is improving, denies nausea, vomiting, diarrhea, rectal bleeding. Abdominal MRCP shows cholelithiasis with mild gallbladder wall thickening and trace pericholecystic fluid, no choledocolithiasis or pancreaticobiliary ductal dilatation, no peripancreatic edema to suggest pancreatitis, few scattered small pancreatic cyst the largest measuring 4mm. - Objective Vital Signs: Vital Signs Temperature 98.2 F 02/21/19 06:00 Pulse Rate 74 02/21/19 06:00 Respiratory Rate 18 02/21/19 06:00 Blood Pressure 149/81 02/21/19 06:00 O2 Sat by Pulse Oximetry (%) 96 02/20/19 21:00 Constitutional: No Distress, Calm, Obese Eyes: Yes: Conjunctiva Clear HENT: Yes: Atraumatic Cardiovascular: Yes: Regular Rate and Rhythm Respiratory: Yes: Regular, CTA Bilaterally Gastrointestinal Inspection: Yes: WNL. No: Ascites, Distention, Hernia, Scars, Other ...Auscultate: Yes: Normoactive Bowel Sounds. No: Hyperactive Bowel Sounds, Hypoactive Bowel Sounds, No Bowel Sounds, Other ...Palpate: Yes: Soft, Tenderness (RUQ and RLQ). No: Firm/Rigid, Guarding, Hepatomegaly, Mass, Pulsatile Mass, Splenomegaly, Tenderness, Epigastium, Tenderness, Rebound, Other ...Percussion: Yes: Tympanitic. No: Dullness, Fluid Wave, Other Neurological: Yes: Alert, Oriented Psychiatric: Yes: Alert, Oriented Labs: CBC, BMP 02/19/19 07:27 02/19/19 07:27 INR, PTT INR 1.34 (0.83-1.09) H 02/16/19 21:31 Microbiology 02/17/19 08:25 Blood - Peripheral Venous Blood Culture - Preliminary NO GROWTH OBTAINED AFTER 72 HOURS, INCUBATION TO CONTINUE FOR 2 DAYS. 02/17/19 08:30 Blood - Peripheral Venous Blood Culture - Preliminary NO GROWTH OBTAINED AFTER 72 HOURS, INCUBATION TO CONTINUE FOR 2 DAYS. 02/16/19 21:31 Urine - Urine Clean Catch Urine Culture - Final Escherichia Coli Problem List - Problems (1) Acute gallstone pancreatitis Assessment/Plan: normal CBD elevated Total bilirubin r/o CBD stone Biliary Pancreatitis secondary to Gallstones Pancreatitis secondary to Gleevac R> MRCP results reviewed Surgery on board, possible cholecystectomy actigall 300mg bid Code(s): K85.10 - BILIARY ACUTE PANCREATITIS WITHOUT NECROSIS OR INFECTION (2) Pancreas cyst Code(s): K86.2 - CYST OF PANCREAS
[2019-02-21] MEDS: URSODIOL 300 MG CAPSULE PO SCH ×2 (09:23→21:23)
[2019-02-21] MEDS: MUPIROCIN 2% TOPICAL OINTMENT FOR DECOLONIZATION NS SCH ×2 (09:24→21:14)
[2019-02-21 09:25] LABS: HEMATOCRIT 31.1 % (32.4-45.2); HEMOGLOBIN 10.3 GM/dL (10.7-15.3); MCH 28.8 pg (25.7-33.7); MCHC 33.2 g/dl (32.0-36.0); MEAN CELL VOLUME 86.7 fl (80-96); MEAN PLT VOLUME 8.2 fl (7.5-11.1); PLATELET COUNT 163 K/MM3 (134-434); RBC 3.59 M/mm3 (3.60-5.2); RDW 15.3 % (11.6-15.6); WHITE BLOOD COUNT 5.4 K/mm3 (4.0-10.0)
[2019-02-21 09:55] LABS: ALBUMIN 2.6 g/dl (3.4-5.0); BILIRUBIN,TOTAL 0.9 mg/dL (0.2-1); BLOOD UREA NITROGEN 9.2 mg/dL (7-18); CALCIUM 8.7 mg/dL (8.5-10.1); CREATININE 0.5 mg/dL (0.55-1.3); POTASSIUM 3.5 mmol/L (3.5-5.1); TOT PROT 5.4 g/dl (6.4-8.2)
--- NOTE | 2019-02-21 11:21 | SPA.PREOP ---
- PRE-OP NOTE Dx: gallstone pancreatitis Planned Procedure: Laparoscopic cholecystectomy Surgeon: Dr Sg Bender Last Vital Signs Temp Pulse Resp BP Pulse Ox 98.2 F 74 18 149/81 96 02/21/19 06:00 02/21/19 06:00 02/21/19 06:00 02/21/19 06:00 02/20/19 21:00 Lab Results WBC 5.4 K/mm3 (4.0-10.0) 02/21/19 08:10 RBC 3.59 M/mm3 (3.60-5.2) L 02/21/19 08:10 Hgb 10.3 GM/dL (10.7-15.3) L 02/21/19 08:10 Hct 31.1 % (32.4-45.2) L 02/21/19 08:10 MCV 86.7 fl (80-96) 02/21/19 08:10 MCHC 33.2 g/dl (32.0-36.0) 02/21/19 08:10 RDW 15.3 % (11.6-15.6) 02/21/19 08:10 Plt Count 163 K/MM3 (134-434) D 02/21/19 08:10 Sodium 141 mmol/L (136-145) 02/21/19 08:10 Potassium 3.5 mmol/L (3.5-5.1) 02/21/19 08:10 Chloride 109 mmol/L (98-107) H 02/21/19 08:10 Carbon Dioxide 25 mmol/L (21-32) 02/21/19 08:10 Anion Gap 8 MMOL/L (8-16) 02/21/19 08:10 BUN 9.2 mg/dL (7-18) 02/21/19 08:10 Creatinine 0.5 mg/dL (0.55-1.3) L 02/21/19 08:10 Random Glucose 92 mg/dL (74-106) 02/21/19 08:10 Calcium 8.7 mg/dL (8.5-10.1) 02/21/19 08:10 INR 1.34 (0.83-1.09) H 02/16/19 21:31 - IMAGING Chest X-ray: Report Reviewed (CXR: 02/16/19: Since 03/09/12 there is a slightly weaker inspiration with prominent mediastinum and some minimal atelectatic changes at the bases. [place] are sharp) Cat Scan: Report Reviewed (CT A/P w/ contrast 02/17/19: No evidence of acute appendicitis. Abnormal gallbladder with small gallstones and suggestive of possible acute cholecystitis.) MRI: Report Reviewed (MRCP (02/20/19): Cholelithiasis with mild gallbladder wall thickening and trace pericholecystic fluid. No choledocholithiasis or pancreaticobiliary ductal dilatation.) EKG: Report Reviewed (EKG (02/17/19): Sinus tachycardia otherwise normal ecg) - ASSESSMENT/PLAN 1. Make NPO after midnight except po meds 2. GI/DVT PPX 3. Medical optimization / clearance 4. Consent to be obtained by surgeon after risks, benefits and alternatives discussed with patient and or Health Care Proxy.
--- NOTE | 2019-02-21 12:37 | PN ---
Progress Note, Physician Chief Complaint: patient seen and examined feeling better today pain is less - Current Medication List Current Medications: Active Medications Acetaminophen (Tylenol -) 650 mg PO Q6H PRN PRN Reason: PAIN LEVEL 1-5 Last Admin: 02/19/19 15:01 Dose: 650 mg Chlorhexidine Gluconate (Hibiclens For Decolonization -) 1 applic TP HS [facility] Last Admin: 02/20/19 22:07 Dose: Not Given Heparin Sodium (Porcine) (Heparin -) 5,000 unit SQ TID [facility] Last Admin: 02/21/19 07:03 Dose: 5,000 unit Metronidazole (Flagyl 500mg Premixed Ivpb -) 500 mg in 100 mls @ 100 mls/hr IVPB Q8H-IV [facility] Last Admin: 02/21/19 10:32 Dose: 100 mls/hr Levofloxacin (Levaquin 500 Mg Premixed Ivpb -) 500 mg in 100 mls @ 100 mls/hr IVPB DAILY [facility]; Protocol Last Admin: 02/21/19 09:23 Dose: 100 mls/hr Morphine Sulfate (Morphine Sulfate) 1 mg IVPUSH Q8H PRN PRN Reason: PAIN LEVEL 6-10 Mupirocin (Bactroban Ointment (For Decolonization) -) 1 applic NS BID [facility] Stop: 02/22/19 09:59 Last Admin: 02/21/19 09:24 Dose: Not Given Ondansetron HCl (Zofran Injection) 4 mg IVPUSH Q6H PRN PRN Reason: NAUSEA Stop: 02/21/19 23:59 Ursodiol (Actigal -) 300 mg PO BID [facility] Last Admin: 02/21/19 09:23 Dose: 300 mg - Objective Vital Signs: Vital Signs Temperature 98.2 F 02/21/19 06:00 Pulse Rate 74 02/21/19 06:00 Respiratory Rate 18 02/21/19 06:00 Blood Pressure 149/81 02/21/19 06:00 O2 Sat by Pulse Oximetry (%) 96 02/20/19 21:00 Constitutional: Yes: Calm Cardiovascular: Yes: Regular Rate and Rhythm, S1, S2 Respiratory: Yes: CTA Bilaterally Gastrointestinal: Yes: Soft, Tenderness (in the epigastric and RUQ region on deep palpation) Neurological: Yes: Alert, Oriented Labs: CBC, BMP 02/21/19 08:10 12/05/19 08:10 INR, PTT INR 1.34 (0.83-1.09) H 02/16/19 21:31 Problem List - Problems (1) Acute gallstone pancreatitis Assessment/Plan: MRI of abdomen- cholelithiasis and gall bladder wall thickening started on actigal GI on board iv abx NPO for now except ice chips\ OR in the AM for laproscopic cholecystectomy Code(s): K85.10 - BILIARY ACUTE PANCREATITIS WITHOUT NECROSIS OR INFECTION (2) CML (chronic myelocytic leukemia) Assessment/Plan: stop gleevac as it can cause pancreatits Code(s): C92.10 - CHRONIC MYELOID LEUK, BCR/ABL-POSITIVE, NOT ACHIEVE REMIS
[2019-02-21] MEDS: CHLORHEXIDINE GLUCONATE 4% CLEANSER FOR DECOLONIZATION TP SCH (21:14)
[2019-02-22] MEDS ORDERED: BUPIVACAINE HCL/PF 0.5% (5 MG/ML) 30 ML VIAL IJ ONE (07:34)
[2019-02-22] MEDS ORDERED: PROPOFOL 20 ML ONE ×2 (08:20)
[2019-02-22] MEDS ORDERED: MIDAZOLAM HCL 2 MG/2 ML SINGLE DOSE VIAL ONE (08:20)
[2019-02-22] MEDS ORDERED: ROCURONIUM BROMIDE 50 MG/5 ML SYRINGE ONE ×2 (08:20→09:53)
[2019-02-22] MEDS ORDERED: fentaNYL CITRATE 250 MCG/5 ML VIAL ONE (08:20)
[2019-02-22] MEDS ORDERED: LIDOCAINE HCL/PF 2% SDV 5ML VIAL ONE (08:20)
[2019-02-22 08:47] LABS: BASO % 0.7 % (0-2.0); EOS % 2.3 % (0-4.5); HEMOGLOBIN 10.3 GM/dL (10.7-15.3); LYMPH % 21.6 % (8-40); MCH 28.8 pg (25.7-33.7); MCHC 33.2 g/dl (32.0-36.0); MEAN CELL VOLUME 86.9 fl (80-96); MEAN PLT VOLUME 8.2 fl (7.5-11.1); MONO % 10.7 % (3.8-10.2); NEUT % 64.7 % (42.8-82.8); PLATELET COUNT 180 K/MM3 (134-434); RBC 3.57 M/mm3 (3.60-5.2); RDW 15.4 % (11.6-15.6); WHITE BLOOD COUNT 5.5 K/mm3 (4.0-10.0)
[2019-02-22] MEDS ORDERED: ceFAZolin SODIUM 1 GM VIAL ONE (08:52)
[2019-02-22] MEDS ORDERED: ceFAZolin SODIUM 1 GM VIAL IVPB ONE (08:53)
[2019-02-22] MEDS ORDERED: BUPIVACAINE HCL/PF 0.5% (5MG/ML) 10 ML VIAL NR ONE ×3 (08:53→10:16)
[2019-02-22] MEDS ORDERED: PHENYLEPHRINE HCL 10 MG/1 ML SINGLE DOSE VIAL ONE (09:14)
[2019-02-22] MEDS ORDERED: DEXAMETHASONE SOD PHOSPHATE 4 MG/1 ML VIAL ONE (09:22)
[2019-02-22 09:24] LABS: ALBUMIN 2.6 g/dl (3.4-5.0); BILIRUBIN,TOTAL 0.9 mg/dL (0.2-1); BLOOD UREA NITROGEN 7.9 mg/dL (7-18); CALCIUM 8.7 mg/dL (8.5-10.1); CREATININE 0.5 mg/dL (0.55-1.3); POTASSIUM 3.7 mmol/L (3.5-5.1); TOT PROT 5.5 g/dl (6.4-8.2)
[2019-02-22] MEDS ORDERED: NEOSTIGMINE METHYLSULFATE 0.5 MG/ML - 10 ML MDV ONE (09:25)
[2019-02-22] MEDS ORDERED: GLYCOPYRROLATE 0.2 MG/1 ML VIAL ONE (09:25)
[2019-02-22] MEDS ORDERED: ONDANSETRON 4 MG/2 ML VIAL IVPUSH PRN ×2 (09:50→11:32)
[2019-02-22] MEDS ORDERED: IBUPROFEN 800 MG/8 ML IJ IVPB PRN ×2 (09:50→11:32)
[2019-02-22] MEDS ORDERED: LACTATED RINGERS SOLUTION 1,000 ML IV SCH (10:00)
[2019-02-22 10:17] LABS: PLATELET ESTIMATE NORMAL
[2019-02-22] MEDS ORDERED: oxyCODONE HCL 5 MG TABLET PO PRN ×2 (11:07)
--- NOTE | 2019-02-22 11:16 | SURG ---
Surgery Financial Compliance Officer Note Financial Compliance Officer: Thi Melton PA-C Date of Service: 02/22/19 Diagnosis: gallstone pancreatitis Procedure: laparoscopic cholecystectomy I was present for the entirety of the operative procedure. For further detail, please refer to operative report. Visit type - Case Type Case Type: ED Admission - Emergency Emergency Visit: Yes ED Registration Date: 02/17/19 Care time: The patient presented to the Emergency Department on the above date and was hospitalized for further evaluation of their emergent condition. - New patient This patient is new to me today: Yes Date on this admission: 02/22/19
--- NOTE | 2019-02-22 11:16 | OP ---
Operative Note - Note: Operative Date: 02/22/19 Pre-Operative Diagnosis: gallstone pancreatitis Operation: laparoscopic cholecystectomy Post-Operative Diagnosis: Same as Pre-op Surgeon: Sg Bender Aerobics Teacher: Thi Melton Anesthesiologist/DESIGN PROJECT MANAGER: Joe Barajas Anesthesia: General, Local Specimens Removed: gallbladder Estimated Blood Loss (mls): 50 Drains & Tubes with Location: ELADIA RLQ Operative Report Dictated: Yes
[2019-02-22] MEDS ORDERED: ACETAMINOPHEN 325 MG TABLET (FP) PO PRN (11:32)
[2019-02-22] MEDS: URSODIOL 300 MG CAPSULE PO SCH ×2 (13:15→21:08)
--- NOTE | 2019-02-22 15:46 | PN ---
Progress Note, Physician Chief Complaint: patient seen and examined s/p laproscopic cholecystomy - Current Medication List Current Medications: Active Medications Acetaminophen (Tylenol -) 650 mg PO Q6H PRN PRN Reason: PAIN LEVEL 1-5 Heparin Sodium (Porcine) (Heparin -) 5,000 unit SQ TID [facility] Lactated Ringer's (Lactated Ringers Solution) 1,000 mls @ 125 mls/hr IV ASDIR SERGIO Ibuprofen (Caldolor Injection -) 800 mg IVPB Q6H PRN PRN Reason: Pain - Pacu Ondansetron HCl (Zofran Injection) 4 mg IVPUSH Q6H PRN PRN Reason: NAUSEA AND/OR VOMITING Oxycodone HCl (Roxicodone -) 5 mg PO Q4H PRN PRN Reason: PAIN LEVEL 4 - 6 Oxycodone HCl (Roxicodone -) 10 mg PO Q4H PRN PRN Reason: PAIN LEVEL 7-10 Ursodiol (Actigal -) 300 mg PO BID [facility] - Objective Vital Signs: Vital Signs Temperature 97.8 F 02/22/19 15:26 Pulse Rate 93 H 02/22/19 15:26 Respiratory Rate 20 02/22/19 15:26 Blood Pressure 160/89 02/22/19 15:26 O2 Sat by Pulse Oximetry (%) 96 02/22/19 12:45 Constitutional: Yes: Calm Cardiovascular: Yes: Regular Rate and Rhythm, S1, S2 Respiratory: Yes: CTA Bilaterally Gastrointestinal: Yes: Normal Bowel Sounds, Soft, Tenderness (ELADIA drain serosanginous discharge 4 small incisions noted), Other (ELADIA drain in place serosanginous drainage) Labs: CBC, BMP 02/22/19 07:20 02/22/19 07:20 INR, PTT INR 1.34 (0.83-1.09) H 02/16/19 21:31 Problem List - Problems (1) Acute gallstone pancreatitis Assessment/Plan: MRI of abdomen- cholelithiasis and gall bladder wall thickening started on actigal GI on board iv abx s/p lap choloecystectomy clear liquid diet Code(s): K85.10 - BILIARY ACUTE PANCREATITIS WITHOUT NECROSIS OR INFECTION (2) CML (chronic myelocytic leukemia) Assessment/Plan: stop gleevac as it can cause pancreatits Code(s): C92.10 - CHRONIC MYELOID LEUK, BCR/ABL-POSITIVE, NOT ACHIEVE REMIS
--- NOTE | 2019-02-22 16:56 | PN ---
Progress Note (short form) - Note Progress Note: s/p lap choly today resting comfortably Vital Signs Period Temp Pulse Resp BP Sys/Khan Pulse Ox Last 24 Hr 97.8 F-98.4 F 74-93 14-20 108-160/53-89 95-800 cor-rrr lungs clear +ruq arlene drain abd soft, no distention ext no edema CBC, BMP 02/22/19 07:20 02/22/19 07:20 Microbiology 02/17/19 08:25 Blood - Peripheral Venous Blood Culture - Final NO GROWTH AFTER 5 DAYS INCUBATION 02/17/19 08:30 Blood - Peripheral Venous Blood Culture - Final NO GROWTH AFTER 5 DAYS INCUBATION 02/16/19 21:31 Urine - Urine Clean Catch Urine Culture - Final Escherichia Coli a/p gallstone pancreatitis cholycystitis-s/p lap cholly today history of gastric bypass CML penicillin allergy ecoli uti- pansensitive levaquin /flagyl day #6 - further antibiotic management per surgery please call back if needed d/w dr prado Problem List - Problems (1) Biliary sepsis Code(s): K83.09 - OTHER CHOLANGITIS (2) Acute gallstone pancreatitis Code(s): K85.10 - BILIARY ACUTE PANCREATITIS WITHOUT NECROSIS OR INFECTION (3) Choledocholithiasis Code(s): K80.50 - CALCULUS OF BILE DUCT W/O CHOLANGITIS OR CHOLECYST W/O OBST (4) Cholecystitis Code(s): K81.9 - CHOLECYSTITIS, UNSPECIFIED (5) CML (chronic myelocytic leukemia) Code(s): C92.10 - CHRONIC MYELOID LEUK, BCR/ABL-POSITIVE, NOT ACHIEVE REMIS (6) Penicillin allergy Code(s): Z88.0 - ALLERGY STATUS TO PENICILLIN
[2019-02-22] MEDS: LACTATED RINGERS SOLUTION 1,000 ML IV SCH (18:25)
[2019-02-22] MEDS: HEPARIN NA (PORCINE) 5,000 UNITS/ML 1ML VIAL SQ SCH (21:09)
[2019-02-22] MEDS ORDERED: CHLORHEXIDINE GLUCONATE 4% CLEANSER FOR DECOLONIZATION TP SCH (22:00)
[2019-02-23] MEDS: HEPARIN NA (PORCINE) 5,000 UNITS/ML 1ML VIAL SQ SCH ×3 (05:41→21:05)
[2019-02-23] MEDS: LACTATED RINGERS SOLUTION 1,000 ML IV SCH (06:10)
[2019-02-23] MEDS: URSODIOL 300 MG CAPSULE PO SCH ×2 (09:08→21:05)
--- NOTE | 2019-02-23 10:15 | PN ---
Progress Note (short form) - Note Progress Note: Attending Surgeon POD#1 No c/o; had breakfast and it was well tolerated VSS AF abdo-soft and non tender; port sites c/d/i; ELADIA serous and output noted IMP: doing well PLAN: D/c IVF; OOB; continue ELADIA drain and anticipate d/c 02/24/19. Sg Bender MD FACS
--- NOTE | 2019-02-23 12:06 | PN ---
Progress Note (short form) - Note Progress Note: 58F s/p lap cholecystectomy under [place]. No new c/o. OOB and tolerating PO. IVF d/c 'd. Vital Signs Temp 98.2 F 02/23/19 08:55 Pulse 74 02/23/19 08:55 Resp 20 02/23/19 09:00 BP 143/72 02/23/19 08:55 Pulse Ox 94 L 02/23/19 09:00 Intake & Output 02/22/19 02/23/19 02/23/19 23:59 11:59 23:59 Intake Total 1280 1400 Output Total 90 50 Balance 1190 1350 Intake: IV 500 1250 Lactated Ringers Solution 500 1250 1,000 ml @ 125 mls/hr IV ASDIR SERGIO Rx#: [id number] IVPB 200 100 Oral 580 50 Tube Feeding 0 Output: Drainage 90 50 Right Abdomen 60 50 Other: Voiding Method Toilet Toilet # Unmeasured Voids Void 1 1 Bowel Movement No No - no anesthetic complications
--- NOTE | 2019-02-23 12:41 | PN ---
Progress Note, Physician Chief Complaint: AWAKE ALERT MILD DISTRESS NO FEVER OR CHILLS SITTING IN A CHAIR COMFORTABLY - Current Medication List Current Medications: Active Medications Acetaminophen (Tylenol -) 650 mg PO Q6H PRN PRN Reason: PAIN LEVEL 1-5 Heparin Sodium (Porcine) (Heparin -) 5,000 unit SQ TID [facility] Last Admin: 02/23/19 05:41 Dose: Not Given Levofloxacin (Levaquin 500 Mg Premixed Ivpb -) 500 mg in 100 mls @ 100 mls/hr IVPB DAILY [facility]; Protocol Stop: 02/25/19 23:59 Last Admin: 02/23/19 10:23 Dose: 100 mls/hr Metronidazole (Flagyl 500mg Premixed Ivpb -) 500 mg in 100 mls @ 100 mls/hr IVPB Q8H-IV [facility] Last Admin: 02/23/19 09:08 Dose: 100 mls/hr Ibuprofen (Caldolor Injection -) 800 mg IVPB Q6H PRN PRN Reason: Pain - Pacu Ondansetron HCl (Zofran Injection) 4 mg IVPUSH Q6H PRN PRN Reason: NAUSEA AND/OR VOMITING Oxycodone HCl (Roxicodone -) 5 mg PO Q4H PRN PRN Reason: PAIN LEVEL 4 - 6 Oxycodone HCl (Roxicodone -) 10 mg PO Q4H PRN PRN Reason: PAIN LEVEL 7-10 Ursodiol (Actigal -) 300 mg PO BID [facility] Last Admin: 02/23/19 09:08 Dose: 300 mg - Objective Vital Signs: Vital Signs Temperature 98.2 F 02/23/19 08:55 Pulse Rate 74 02/23/19 08:55 Respiratory Rate 20 02/23/19 09:00 Blood Pressure 143/72 02/23/19 08:55 O2 Sat by Pulse Oximetry (%) 94 L 02/23/19 09:00 Constitutional: Yes: Mild Distress Cardiovascular: Yes: Regular Rate and Rhythm Respiratory: Yes: WNL Gastrointestinal: Yes: Soft, Abdomen, Obese, Other (DRAIN + SANGUINOUS FLUID) Genitourinary: Yes: WNL Musculoskeletal: Yes: WNL Edema: Yes Wound/Incision: Yes: Draining Labs: CBC, BMP 02/22/19 07:20 02/22/19 07:20 INR, PTT INR 1.34 (0.83-1.09) H 02/16/19 21:31 Problem List - Problems (1) Hx laparoscopic cholecystectomy Code(s): Z90.49 - ACQUIRED ABSENCE OF OTHER SPECIFIED PARTS OF DIGESTIVE TRACT (2) Acute gallstone pancreatitis Code(s): K85.10 - BILIARY ACUTE PANCREATITIS WITHOUT NECROSIS OR INFECTION (3) Biliary sepsis Code(s): K83.09 - OTHER CHOLANGITIS (4) CML (chronic myelocytic leukemia) Code(s): C92.10 - CHRONIC MYELOID LEUK, BCR/ABL-POSITIVE, NOT ACHIEVE REMIS (5) Cholecystitis Code(s): K81.9 - CHOLECYSTITIS, UNSPECIFIED (6) Choledocholithiasis Code(s): K80.50 - CALCULUS OF BILE DUCT W/O CHOLANGITIS OR CHOLECYST W/O OBST (7) Elevated lactic acid level Code(s): R79.89 - OTHER SPECIFIED ABNORMAL FINDINGS OF BLOOD CHEMISTRY Assessment/Plan IV ABX CONTINUED LEVAQUIN/FLAGYL SURGERY EVAL APPRECIATED DC PLANNING FOR TOMORROW OOB TO CHAIR DVT PROPHYLAXIS PO INTAKE ADVANCED TOLERATED
[2019-02-24] MEDS: HEPARIN NA (PORCINE) 5,000 UNITS/ML 1ML VIAL SQ SCH (06:33)
[2019-02-24] MEDS: URSODIOL 300 MG CAPSULE PO SCH (10:08)
--- NOTE | 2019-02-24 12:25 | DS ---
Physical Examination Vital Signs: Vital Signs Temperature 98.6 F 02/24/19 06:35 Pulse Rate 68 02/24/19 06:35 Respiratory Rate 20 02/24/19 06:35 Blood Pressure 149/79 02/24/19 06:35 O2 Sat by Pulse Oximetry (%) 96 02/23/19 21:00 Findings/Remarks: AWAKE ALERT FEELING BETTER Constitutional: Yes: No Distress Cardiovascular: Yes: Regular Rate and Rhythm Respiratory: Yes: WNL Gastrointestinal: Yes: Soft Musculoskeletal: Yes: WNL Edema: No Integumentary: Yes: WNL Wound/Incision: Yes: Draining Neurological: Yes: WNL ...Motor Strength: WNL Psychiatric: Yes: WNL Labs: CBC, BMP 02/22/19 07:20 02/22/19 07:20 Discharge Summary Problems reviewed: Yes Reason For Visit: CHOLECYSTITIS,ACUTE GALLSTONE PANCREATITIS Current Active Problems Acute gallstone pancreatitis (Acute) Biliary sepsis (Acute) CML (chronic myelocytic leukemia) (Acute) Cholecystitis (Acute) Choledocholithiasis (Acute) Elevated lactic acid level (Acute) Hx laparoscopic cholecystectomy (Acute) Hypokalemia (Acute) Pancreas cyst (Acute) Penicillin allergy (Acute) Sepsis associated hypotension (Acute) Procedures: Principal: CHOLCYSTECTOMY Hospital Course: ACUTE CHOLIDOCOLITHIASIS, SEPSIS REQUIRING IV ABX IN ICU, CHOLCSTECTOMY DONE SURGERY F/U Plan of Treatment: SURGERY F/U SEE YOUR PMD 1-2 WEEKS Condition: Improved - Instructions Diet, Activity, Other Instructions: Dr. Bender Discharge Instructions Dear LIANG CUI, Post Operative Instructions Physical activity Resume your normal everyday activity as tolerated no heavy lifting or exercise until seen by your surgeon. You may walk unlimited amounts of and climb stairs. You may resume driving the car when you feel safe and comfortable behind the wheel and are no longer taking narcotics. Wound care If you have a bandage, leave it on, and keep dry for 48 hours. After that time discard the outer bandage. If there are tapes on the skin under the outer bandage, leave them in place. They will peel off in the next 7 to 10 days. Do Not peel them off. You may shower 2 days after surgery but do not submerge the incisions. If there are tapes present on the skin, they can get wet. Do not apply lotion or ointments to incisions. Diet There are no dietary restrictions. Eat healthy, high-fiber foods. Drink 6 to 8 glasses of liquid each day. This will assist in keeping your bowels are regular. Pain management You may take Tylenol or acetaminophen or Ibuprofen (for example, Motrin, Advil etc.) Any pain prescription medication ordered should be taken as prescribed for moderate to severe pain. Call Dr. Bender for any of the following: Severe pain not relieved by medication Fever of 101 or higher Excessive bleeding or drainage on dressing Inability to urinate If you experience any chest pain or shortness of breath please seek emergency treatment. Call the office at [phone] for a post operative appointment in 7 - 10 days. Referrals: Darius Hernandez MD [Primary Care Provider] - Disposition: HOME - Home Medications Comprehensive Discharge Medication List: Ambulatory Orders Imatinib Mesylate [Gleevec] 400 mg PO BID 03/09/12 Acetaminophen [Tylenol .Regular Strength -] 650 mg PO Q6H PRN tablet 02/24/19 Ursodiol [Actigal -] 300 mg PO BID #60 capsule 02/24/19
[2019-02-24 12:29] VITALS: BP 142/76; PULSE 75; TEMP 98.7
--- NOTE | 2019-02-24 12:34 | PN ---
Progress Note (short form) - Note Progress Note: Attending Surgeon POD#2 No c/o; tolerating diet; OOB VSS AF abdo-soft and nontender; port sites c/d/i; drain serous; o/w negative. IMP: doing well PLAN: Drain removed; stable for d/c to office f/u next week. Sg Bender MD FACS
--- NOTE | 2019-02-26 13:25 | OP ---
DATE OF OPERATION: 02/22/2019 PREOPERATIVE DIAGNOSIS: Gallstone pancreatitis. POSTOPERATIVE DIAGNOSIS: Gallstone pancreatitis. PROCEDURE: Laparoscopic cholecystectomy. SURGEON: Sg Bender MD DESULFURIZER HAND: DAT Taylor ANESTHESIA: General. OPERATIVE FINDINGS: There was cholelithiasis and inflammatory changes of the gallbladder. There were adhesions from previous surgery. The rest of the findings were unremarkable. DESCRIPTION OF PROCEDURE: The patient was placed on the operating table in the supine position and after the induction of general anesthesia the patient's abdomen was prepped with ChloraPrep and draped in sterile fashion. A timeout was taken and pneumoperitoneum established above the umbilicus using a Iglesias cannula/port under direct vision entry into the peritoneal cavity. Additional lateral 5-mm ports and a subxiphoid 12-mm port were placed. Laparoscopy was carried out and the previously noted findings were observed. Dissection was begun at the neck of the gallbladder where the peritoneum was opened medially and laterally using blunt dissection and electrocautery. The cystic duct was identified coursing from the neck of the gallbladder towards the common bile duct and it was dissected using blunt dissection proximally and distally for length. Similarly, the artery was identified and dissected proximally and distally for length. A critical view of safety was taken and then the duct and the artery were clipped twice proximally and twice distally with large hemoclips. The duct and artery were then serially divided using Endoshears. Hemostasis was checked for and noted to be good and then the gallbladder was removed from the liver bed in a retrograde fashion using electrocautery. Prior to removal from the edge of the liver, hemostasis in the liver bed was again checked for and noted to be good and then the gallbladder removed from the edge of the liver, placed in an EndoCatch , and brought out through the subxiphoid port. Pneumoperitoneum was reestablished. Copious irrigation was carried out with saline. Hemostasis was verified again. A 10-mm Rafy-Cortez drain was placed in the right hepatorenal fossa and brought out through 1 of the 5-mm ports and secured to the skin with 2-0 silk suture. All ports were removed under laparoscopic vision without evidence of bleeding from the port sites. The port sites were infiltrated with 0.5% Marcaine and the skin edges reapproximated with 4-0 Biosyn in a subcuticular continuous fashion. The defect at the umbilical port site was close with a O Vicryl figure of eight suture.Steri-Strips and Band-Aid dressings were placed. The drain was connected to bulb suction and then the patient aroused from general anesthesia and transferred to the postanesthesia care unit in stable condition, awake and alert. ESTIMATED BLOOD LOSS: 50 mL. REPLACEMENT: Crystalloid. DRAINS: One 10-mm Rafy-Cortez. SPECIMEN: Gallbladder and contents to Pathology. I, Sg Bender MD, was physically present in the operating room from the time the patient was placed on the operating table until she was transferred to the postanesthesia care unit in [place]. MD PAT [id number] MTDD
--- NOTE | 2019-02-26 15:29 | PATH ---
Surgical Pathology Report Patient Name: NATY CUI [facility]. Rec. #: [id number] /Age/Gender: 1960 (Age: 58) / F Account: [id number] Location: [address] [place] [address] Taken: 02/22/2019 Received: 02/22/2019 Reported: 02/26/2019 Physicians: Sg Bender MD Specimen(s) Received GALLBLADDER Clinical History Cholecystitis, acute gallstone pancreatitis Final Diagnosis GALLBLADDER, LAPAROSCOPIC CHOLECYSTECTOMY: GALLBLADDER WITH ACUTE AND CHRONIC CHOLECYSTITIS, CHOLELITHIASIS, AND ADENOMYOMATOUS HYPERPLASIA. Electronically Signed Naty Oreilly M.D. Gross Description Received in formalin, labeled "gallbladder," is a 7.3 x 3.0 x 2.0 cm. gallbladder with a 0.3 cm. in length portion of cystic duct attached. The outer surface is hargrove-pink with a focal defect and varies from smooth to shaggy. The lumen contains brown, sludgelike bile as well as multiple black, irregular to fragmented choleliths ranging from 0.1-0.7 cm in greatest dimension. The mucosa is hargrove and velvety. The fundus displays a thickened wall with submucosal cystic spaces. The remaining wall of the gallbladder averages 0.2 cm. in thickness. Insole Reinforcer sections are submitted in 2 cassettes as follows: 1-cystic duct margin and customer service representative teller gallbladder; 2-fundus. 02/25/2019 [facility]02/25/2019
== END 2019-02-24 14:43 | disposition home or self-care (01) | DRG 710 ==
LOC: JER 20:27 → JERBED 02-17 02:15 → JICU 02-17 06:44 → J5S 02-18 19:20
PROVIDERS: ADMIT Internal Medicine; ATTEND Family Medicine
PROC: 0FT44ZZ Resection of Gallbladder, Percutaneous Endoscopic Approach (ICD-10-PCS; principal; 2019-02-22 08:00)
DX: A41.9 Sepsis, unspecified organism (principal); K85.10 Biliary acute pancreatitis without necrosis or infection; E87.6 Hypokalemia; K86.2 Cyst of pancreas; Z88.0 Allergy status to penicillin; C92.10 Chronic myeloid leukemia, BCR/ABL-positive, not having achieved remission; I95.9 Hypotension, unspecified; E66.9 Obesity, unspecified; Z68.38 Body mass index [BMI] 38.0-38.9, adult; N39.0 Urinary tract infection, site not specified; B96.20 Unspecified Escherichia coli [E. coli] as the cause of diseases classified elsewhere; K80.40 Calculus of bile duct with cholecystitis, unspecified, without obstruction; D69.6 Thrombocytopenia, unspecified; J98.11 Atelectasis
CPT/HCPCS: 36415; 71045-TC-FY; 74177-TC; 74181-TC; 76705-TC; 80053; 81003; 82150; 82550; 83605; 83615; 83690; 83735; 84100; 84484; 84703; 85025; 85027; 85610; 85730; 87040; 87086; 87186; 88304-TC; 93005; 93010; 94760; 99284-25; J0131; J1644; J7030; Q9967